=== PATIENT | male | born 1990 | race Caucasian/White ===

== ENCOUNTER → 2020-11-15 10:48 | Outpatient (CLI) | payer MEDICAID, SELFPAY ==
[2020-11-15 12:21] LABS: Absolute Lymphocyte Count 2.32 X10^3/uL (0.83-4.51); Absolute Neutrophil Count 5.6 X10^3/uL (2.0-7.7); Basophil# 0.12 X10^3/uL; Basophil% 1.3 % (0-1); Eosinophil# 0.53 X10^3/uL; Eosinophils% 5.7 % (0-5); Hematocrit 46.1 % (40-54); Hemoglobin 15.3 g/dL (13.0-16.5); Lymphocyte # 2.32 X10^3/ul (0.83-4.51); Lymphocyte % 25.1 % (19-41); Mean Corp Hgb Conc 33.2 g/dL (32-36); Mean Corpuscular Hgb 30.1 pg (27.0-32.0); Mean Corpuscular Volume 90.7 fL (80-94); Monocyte% 7.6 % (0-10); NRBC Flagged by Analyzer 0 % (0-5); Neutrophil # 5.56 X10^3/uL (2.7-7.7); Platelet Count 381 K/mm3 (150-450); RBC Distribution Width CV 12.8 % (11.6-14.6); Red Blood Count 5.08 M/mm3 (4.6-6.2); White Blood Count 9.3 K/mm3 (4.4-11.0)
[2020-11-15 12:59] LABS: ALB/GLOB Ratio 1.1 RATIO (0.9-2.4); AST(SGOT) 15 U/L (15-37); Alanine Aminotransfer ALT/SGPT 24 U/L (16-61); Albumin, Serum 3.8 g/dL (3.2-5.0); Alkaline Phosphatase 72 U/L (45-117); Anion Gap 11 (5-15); BUN 15 mg/dL (7-18); BUN/Creat Ratio 16.8 RATIO (10-20); Calcium,Total 8.4 mg/dL (8.5-10.1); Chloride 103 mmol/L (98-107); Cholesterol 181 mg/dL (200); Creatinine, Serum 0.89 mg/dL (0.70-1.30); EST Glomerular Filtration Rate 106 mL/min (>60); Est Glom Filt Rate - Afr Amer 128 mL/min (>60); Globulin 3.5 g/dL (2.2-4.2); Glucose 154 mg/dL (74-106); High Density Lipoprotein 58 mg/dL; Potassium 3.6 mmol/L (3.5-5.1); Protein, Total 7.3 g/dL (6.4-8.2); Sodium Level 138 mmol/L (136-145); Thyroid Stim Hormone (TSH) 1.35 uIU/mL (0.358-3.74); Triglycerides 75 mg/dL; Very Low Density Lipoprotein 15 mg/dL (5-40)
== END ==
PROVIDERS: PCP Family Medicine; Visit Provider Family Medicine
DX: E11.9 Type 2 diabetes mellitus without complications (principal)
CPT/HCPCS: 36415; 80053; 80061; 84403; 84443; 85025

== ENCOUNTER → 2022-02-24 | Outpatient (CLI) | payer MEDICAID, SELFPAY ==
[2022-02-24 18:21] LABS: Vitamin B12 1076 pg/mL (211-911)
[2022-02-24 18:41] LABS: AST(SGOT) 13 U/L (15-37); Alanine Aminotransfer ALT/SGPT 25 U/L (16-61); Albumin, Serum 3.7 g/dL (3.2-5.0); Alkaline Phosphatase 61 U/L (45-117); Anion Gap 7 (5-15); BUN 17 mg/dL (7-18); BUN/Creat Ratio 19.8 RATIO (10-20); Calcium,Total 9.4 mg/dL (8.5-10.1); Chloride 106 mmol/L (98-107); Cholesterol 127 mg/dL (200); Creatinine, Serum 0.86 mg/dL (0.70-1.30); EST Glomerular Filtration Rate 110 mL/min (>60); Est Glom Filt Rate - Afr Amer 133 mL/min (>60); Globulin 3.6 g/dL (2.2-4.2); Glucose 125 mg/dL (74-106); High Density Lipoprotein 44 mg/dL; Potassium 3.9 mmol/L (3.5-5.1); Protein, Total 7.3 g/dL (6.4-8.2); Sodium Level 138 mmol/L (136-145); Thyroid Stim Hormone (TSH) 1.05 uIU/mL (0.358-3.74); Triglycerides 107 mg/dL; Very Low Density Lipoprotein 21 mg/dL (5-40)
== END | disposition home or self-care (01) ==
LOC: MFPLAB 15:40
PROVIDERS: PCP Family Medicine; Referring Provider Family Medicine; Visit Provider Family Medicine
DX: E10.65 Type 1 diabetes mellitus with hyperglycemia (principal)
CPT/HCPCS: 36415; 80053; 80061; 82607; 84403; 84443

== ENCOUNTER 2023-11-04 01:54 | Emergency (ER) | payer BC, MEDICAID, SELFPAY ==
[2023-11-04] VITALS (9 sets, daily range): BP systolic 124–154; BP diastolic 69–91; PULSE 72–97; RESP 15–23; TEMP 35.7–36.6; O2SAT 91–100; BMI 24.1
--- NOTE | 2023-11-04 02:37 | CT_ITS ---
ACR Level 3 findings have been noted. An addendum which confirms receipt of the report will follow. EXAM: CT HEAD WITHOUT INTRAVENOUS CONTRAST CLINICAL INDICATION: seizure TECHNIQUE: Multiple axial images were obtained of the head without intravenous contrast. CTDIvol = ( 44.99 ) mGy, DLP = ( 846.73 ) mGycm This CT exam was performed using one or more of the following dose reduction techniques: automated exposure control, adjustment of the mA and/or kV according to patient size, and/or use of iterative reconstruction technique. COMPARISON: No relevant prior studies available. FINDINGS: BRAIN AND EXTRA-AXIAL SPACES: Subtle hypodensity involving the superior left frontal lobe. No intra- or extra-axial hemorrhage. No intracranial mass or mass effect. There is preservation of the lovelace/white matter interface. Posterior fossa structures are unremarkable. Ventricles are appropriate for age. No hydrocephalus. Basal cisterns are patent. BONES/JOINTS: Unremarkable. No discrete lytic or blastic abnormalities. SINUSES: Unremarkable as visualized. Clear. MASTOID AIR CELLS: Unremarkable. Clear. ORBITS: Visualized globes, extraocular muscles, optic nerves and retrobulbar fat appear unremarkable. CT/Brain/Head without Contrast IMPRESSION: Subtle hypodensity involving the superior left frontal lobe. Appearance is nonspecific but if there is clinical concern for acute infarct as a potential cause, recommend MRI for further investigation. Electronically Signed: Jeyson Desai MD at 4:57 EDT ,
--- NOTE | 2023-11-04 02:37 | RAD_ITS ---
EXAM: XR RIGHT SHOULDER COMPLETE, 2 OR MORE VIEWS CLINICAL INDICATION: pain TECHNIQUE: Two or more views of the right shoulder. COMPARISON: No relevant prior studies available. FINDINGS: Acute comminuted fracture involving the humeral head with anterior dislocation humeral head relative to glenoid. Cannot exclude a fracture of the glenoid. Recommend CT for further investigation. RAD/Shoulder min 2 Views IMPRESSION: Acute comminuted fracture involving the humeral head with anterior dislocation humeral head relative to glenoid. Cannot exclude a fracture of the glenoid. Recommend CT for further investigation. Electronically Signed: Jeyson Desai MD at 4:54 EDT ,
[2023-11-04] MEDS: 0.9% Normal Saline (1000mL) 1,000 ML 999 ML IV ×2 (03:07→08:37)
[2023-11-04 03:16] LABS: Absolute Neutrophil Count 19.8 X10^3/uL (2.0-7.7); Basophil# 0.12 X10^3/uL; Basophil% 0.5 % (0-1); Eosinophil# 0.06 X10^3/uL; Eosinophils% 0.3 % (0-5); Hematocrit 49.6 % (40-54); Hemoglobin 16.4 g/dL (13.0-16.5); Lymphocyte % 5.3 % (19-41); Mean Corp Hgb Conc 33.1 g/dL (32-36); Mean Corpuscular Hgb 31.2 pg (27.0-32.0); Mean Corpuscular Volume 94.3 fL (80-94); Mean Platelet Vol. 9.3 fl (6.2-12.0); Monocyte% 5.8 % (0-10); NRBC Flagged by Analyzer 0 % (0-5); Neutrophil # 19.77 X10^3/uL (2.7-7.7); Neutrophil % 87.5 % (47-70); Platelet Count 292 K/mm3 (150-450); RBC Distribution Width CV 12.1 % (11.6-14.6); RBC Distribution Width SD 42.4 fl (35.1-43.9); Red Blood Count 5.26 M/mm3 (4.6-6.2); White Blood Count 22.6 K/mm3 (4.4-11.0)
[2023-11-04] MEDS: Orphenadrine 60 MG/2 ML Ampul IV (03:31)
[2023-11-04] MEDS: Ketorolac 30 MG/ML Syringe IV (03:31)
[2023-11-04 03:36] LABS: Lactic Acid 2.1 mmol/L (0.4-1.9)
[2023-11-04 04:50] LABS: Anion Gap 10 (5-15); BUN 12 mg/dL (7-18); Chloride 105 mmol/L (98-107); Sodium Level 140 mmol/L (136-145)
--- NOTE | 2023-11-04 05:03 | CT_ITS ---
EXAM: CT Shoulder W/O Contrast Injection RIGHT HISTORY: shoulder dislocation with fracture TECHNIQUE: Axial images obtained through the shoulder without IV contrast. Sagittal and coronal reformats were provided. IV Contrast: None.. RADIATION DOSAGE (If Supplied By Facility): CTDIvol = ( 25.88 ) mGy, DLP = ( 564.25 ) mGycm Individualized dose optimization techniques were used for this CT. COMPARISON: Right shoulder x-rays earlier same day. LIMITATIONS: None. FINDINGS: Comminuted fracture proximal humerus involving the greater tuberosity, with approximately 3.5 cm displacement of the larger fragment posterolateral in relation to the humeral head. The humeral head is displaced anterior and inferior relation to the glenoid. The posterior margin of the humeral head is in direct contact with the scapula anterolateral and medial to the glenoid. There is an impaction fracture at the anterior margin of the glenoid. There are numerous tiny bone fragments within the joint space. Moderate joint effusion. Surrounding soft tissue edema. CT/Extremity Upper without Contra IMPRESSION: Fracture dislocation at the glenohumeral joint with comminuted fracture of the greater tuberosity, and humeral head impacted on the scapula anterior to the glenoid. Impaction fracture of the glenoid. Electronically Signed: Denia Craft MD at 6:55 EDT ,
[2023-11-04] MEDS: Ondansetron 4 MG/2 ML Vial IV (05:10)
[2023-11-04] MEDS: HYDROmorphone 1 MG/ML Syringe IV (05:11)
[2023-11-04 05:31] LABS: Bedside Glucose 106 mg/dL (74-106)
[2023-11-04 07:12] LABS: Reflex Lactate? Y
--- NOTE | 2023-11-04 07:34 | EDS_ITS ---
HPI History of Present Illness Chief Complaint: Upper Extremity Injury Informant: patient and friend Narrative Narrative: Patient is a 33-year-old male with past medical history of type 1 diabetes. He states he went to bed last night as he normally would and then he awoke from sleep and felt pain in his right shoulder. He states that prior to falling asleep there is no excessive activity or trauma. He denies falling out of his bed while sleeping. He states he just awoke and noted the pain and has had difficulty moving the arm since he awoke and secondary to this comes in for evaluation. [facility] Medical History (Updated 11/04/23 @ 09:[address] Jeyson Guillaume, DO) Wears glasses Diabetes mellitus type 1 Home Medications ?Medication ?Instructions ?Recorded ?Last Taken ?Type atorvastatin 20 mg tablet 20 mg PO DAILY 11/04/23 Unknown History insulin aspart U-100 100 unit/mL 40 unit subcut 11/04/23 Unknown History (3 mL) subcutaneous pen (Novolog FlexPen U-100 Insulin aspart) insulin glargine 100 unit/mL 50 unit subcut QPM 11/04/23 Unknown History subcutaneous solution (Lantus U-100 Insulin) lisinopril 2.5 mg tablet 2.5 mg PO DAILY 11/04/23 Unknown History oxycodone-acetaminophen 5 mg-325 1 tab PO Q6H PRN pain 5 days #20 11/04/23 Unknown Rx mg tablet (Percocet) tabs Allergy/AdvReac Type Severity Reaction Status Date / Time No Known Allergies Allergy Verified 11/04/23 01:55 Surgical History (Updated 11/04/23 @ 01:57 by Georgina Payan) Hx of tonsillectomy Social History Smoking Status: Current every day smoker tobacco type: e-cigarettes ROS ROS ED Constitutional Constitutional ED: Denies chills or fever(s) Eyes Eyes: Denies change in vision ENT ENT ED: Denies sore throat Cardiovascular Cardiovascular: Denies chest pain Respiratory/Chest Respiratory/Chest: Denies cough or dyspnea Gastrointestinal Gastrointestinal: Denies abdominal pain, diarrhea, nausea or vomiting Genitourinary Genitourinary ED: Denies dysuria Musculoskeletal Musculoskeletal: Reports other Details: Positive right shoulder pain Integumentary Denies rash Neurologic Neurologic: Denies headache(s) or paresthesias Hematologic/Lymphatic Hematologic/Lymphatic: Denies easy bleeding or easy bruising EXAM Physical Exam Const Vital Signs: 11/04/23 01:55 11/04/23 03:19 11/04/23 05:19 Temperature 96.3 F L Temperature Source Temporal Pulse Rate 97 91 92 Respiratory Rate 16 16 16 Blood Pressure 148/91 H 154/83 H 147/80 H Blood Pressure Mean 110 106 102 Pulse Ox 99 100 99 Oxygen Delivery Method Room Air Room Air Room Air Positive well nourished and well developed General Appearance ED: well developed HEENT HEENT Narrative: Normocephalic atraumatic There is tongue biting noted on the right lateral side concerning for seizure disorder Eyes PERRL and EOMs intact bilaterally Eyes Narrative: No hyphema noted Neck full ROM and supple Neck Narrative: No bony deformity or step-off of the cervical spine no midline tenderness to palpation Chest Wall palpation of chest normal Chest Narrative: No bony deformity or crepitance noted Resp normal respiratory effort and clear to auscultation bilaterally Cardio regular rate and regular rhythm GI non-tender, non-distended and no masses Auscultation: normoactive bowel sounds Palpation: soft Back/Spine Back/Spine Narrative: No bony deformity or step-off of the thoracic or lumbar spine no midline tenderness to palpation Extremity Extremity Narrative: Right upper extremity is neurovascularly intact. There is soft tissue swelling with potential sulcus sign of the right shoulder. There is diffuse pain on palpation of the right shoulder and right upper arm. No obvious joint effusion. Compartments are soft and compressible going against compartment syndrome. Remainder of the exam is normal Neuro oriented x3 and CN's II-XII intact bilaterally Sensorium / Orientation: alert Psych mental status grossly normal Skin no rashes or lesions noted MDM MDM MDM Narrative Medical decision making narrative: Patient arrived to the ER hypertensive but otherwise with stable vitals. He reported waking up and having right shoulder pain and difficulty moving it. On exam there is soft tissue swelling with potential sulcus sign indicating potential shoulder dislocation. There is also right-sided tongue biting noted which would be consistent with a seizure. The patient does not have a history of seizure disorder and has this would be the most likely reason for potential shoulder dislocation without history of trauma or excessive activity I did elect to perform a basic workup that included head CT. The patient's right shoulder x-ray confirmed a fracture dislocation. Radiology recommended a CT scan therefore this was performed and correlates with his x-ray. The patient's blood work showed leukocytosis at 22 and this could be consistent with a stress response from seizure activity and his lactic acid was also slightly elevated consistent with seizure activity. Otherwise he has no signs of DKA or HHS nor other signs of acute kidney injury or electrolyte derangement. The patient CT scan did question a potential area of infarct. I discussed with the patient the need to perform a MRI of his brain to further assess what this potential area may be. He was informed that it could just be artifact and this would also correlate with his normal neurologic exam and stroke scale score of 0. The patient states has been in the ER for too long and he does not want to wait in the ER for another multiple hours to have his MRI obtained. I discussed the case with orthopedic surgeon regarding the fracture dislocation and they feel there is no need for emergent surgical intervention based on the CT scan and the fact he is neurovascularly intact. Therefore the shoulder was reduced as documented below and patient will be discharged home with strict precautions not to drive or operate heavy machinery secondary to his new onset seizure activity. He will follow-up with orthopedics to discuss need for surgical intervention of his fracture and he also agrees to follow-up with his family doctor to get an outpatient MRI regarding the abnormality noted on his head CT today. Patient underwent conscious sedation with closed reduction of his right shoulder fracture dislocation. Patient was given a total of 120 milligrams of propofol and 5 mg of Versed for conscious sedation. Then traction countertraction was employed and there was spontaneous relocation of his shoulder joint. Confirmation was by x-ray. Patient was placed in a sling and swath following confirmation of the reduction. Patient tolerated procedure well without complication. Approximate conscious sedation time of 15 minutes History & Record Review Discussion w/independent historian: Patient and Friend Lab Data Attestation: I reviewed the patient's lab results. Labs: Laboratory Results - last 24 hr 11/04/23 11/04/23 03:07 05:10 WBC 22.6 H RBC 5.26 Hgb 16.4 Hct 49.6 MCV 94.3 H MCH 31.2 MCHC 33.1 RDW Std Deviation 42.4 RDW Coeff of [place] 12.1 Plt Count 292 MPV 9.3 Immature Gran % (Auto) 0.600 Neut % (Auto) 87.5 H Lymph % (Auto) 5.3 L [place] % (Auto) 5.8 Eos % (Auto) 0.3 Baso % (Auto) 0.5 Absolute Neuts (auto) 19.8 H Absolute Lymphs (auto) 1.20 Nucleated RBC % 0 Sodium 140 Potassium 3.6 Chloride 105 Carbon Dioxide 25.0 Anion Gap 10 BUN 12 Creatinine 1.03 Estim Creat Clear Calc 111.96 Est GFR (MDRD) Af Amer 107 Est GFR (MDRD) Non-Af 88 BUN/Creatinine Ratio 11.7 Glucose 61 L Lactic Acid 2.1 H* Calcium 10.0 POC Glucose 106 Radiography Diagnostic Testing: Clinical Impression(s) from Imaging Studies Brain CT 11/04/23 02:37 IMPRESSION: Subtle hypodensity involving the superior left frontal lobe. Appearance is nonspecific but if there is clinical concern for acute infarct as a potential cause, recommend MRI for further investigation. Electronically Signed: Jeyson Desai MD at 4:57 EDT Reading Location ID and State: [facility] / [place] Tel , Service support , ADDENDUM: 11/04/23 0531 IMPRESSION: Subtle hypodensity involving the superior left frontal lobe. Appearance is nonspecific but if there is clinical concern for acute infarct as a potential cause, recommend MRI for further investigation. N.B. : Jeyson Guillaume DO, confirmed on 11/04/2023 05:24:45 (ET) that the healthcare facility has received the radiology report. Electronically Signed: Jeyson Desai MD at 4:57 EDT Reading Location ID and State: [facility] / [place] Tel , Service support , Shoulder X-Ray 11/04/23 02:37 IMPRESSION: Acute comminuted fracture involving the humeral head with anterior dislocation humeral head relative to glenoid. Cannot exclude a fracture of the glenoid. Recommend CT for further investigation. Electronically Signed: Jeyson Desai MD at 4:54 EDT Reading Location ID and State: [facility] / [place] Tel , Service support , Upper Extremity CT 11/04/23 05:03 IMPRESSION: Fracture dislocation at the glenohumeral joint with comminuted fracture of the greater tuberosity, and humeral head impacted on the scapula anterior to the glenoid. Impaction fracture of the glenoid. Electronically Signed: Denia Craft MD at 6:55 EDT Reading Location ID and State: [address] [place] [address] Tel , Service support , Right shoulder x-ray as interpreted by the emergency medicine physician reveals a comminuted fracture of the humeral head with anterior dislocation Right shoulder x-ray status post reduction of the right shoulder as interpreted by emergency medicine physician reveals adequate relocation/reduction of the right shoulder into the joint space with persistent greater tuberosity fracture Procedures Procedural Sedation 1 (Initial Baseline): Consent Signed: Yes Any Problems With Anesthesia: No You/Your family experience fever (hyperthermia) w/anesthesia: No Sedation medication: Versed Dose: 120 Route: IV Maliampati Score: Class I ASA Classification: II Discharge Plan Triage Chief Complaint: Upper Extremity Injury ED Provider: Jeyson Guillaume Dx/Rx/DC Orders Clinical Impression: Fracture dislocation of right shoulder joint, New onset seizure, Type 1 diabetes mellitus Instructions: ED Dislocation: Shoulder (Reduced), ED Fracture, Shoulder, ED Seizure New [facility] Adult Prescriptions: New oxycodone-acetaminophen [Percocet] 5-325 mg tablet 1 tab PO Q6H PRN (Reason: pain) 5 Days Qty: 20 0RF No Action insulin glargine [Lantus U-100 Insulin] 100 unit/mL solution 50 unit subcut QPM atorvastatin 20 mg tablet 20 mg PO DAILY lisinopril 2.5 mg tablet 2.5 mg PO DAILY insulin aspart U-100 [Novolog FlexPen U-100 Insulin] 100 unit/mL (3 mL) insulin pen 40 unit subcut Primary Care Provider: Domenic Zarate Referrals: Domenic Zarate MD [Primary Care Provider] - Atilio Winston DO [Med Staff - Active Staff] - Sarbjit Manning MD [Non-Staff -Ordering Privileges] - Activity Restrictions/Additional Instructions: Please follow-up with orthopedics for repeat evaluation and to discuss need for surgical fixation of your right shoulder fracture. Also as your history and exam indicate you had a seizure this evening/morning as a cause of your symptoms you should not drive or operate heavy machinery until you are cleared by neurology. We discussed there was a potential abnormal finding on your CT scan of your brain and therefore talk to your family doctor about potential outpatient MRI to further evaluate this. Return to the ER should you have any further concerns Print Language: Yakut Disposition Disposition: Home, Self Care Discharge Date/Time: 11/04/23 09:54
[2023-11-04] MEDS: Propofol 200 MG/20 ML Vial IV BOLUS (08:37)
[2023-11-04] MEDS: Midazolam 5 MG/ML Syringe IV (08:39)
--- NOTE | 2023-11-04 09:01 | ED.RN ---
post reduction xrays at bedside.
--- NOTE | 2023-11-04 09:05 | RAD_ITS ---
STUDY: X-RAY - RIGHT SHOULDER REASON FOR EXAM: Male, 33 years old. S/p reduction TECHNIQUE: 2 view(s) of the shoulder. COMPARISON: Comparison is made with prior study done earlier today. FINDINGS: Satisfactory reduction of the glenohumeral joint. There is a fracture through the greater tuberosity of the proximal humerus. Normal acromioclavicular joint. Normal acromion. The soft tissue structures are unremarkable. Normal visualized pulmonary apex. RAD/Shoulder min 2 Views IMPRESSION: Satisfactory reduction. Once again, is evidence of a fracture through the greater tuberosity of the proximal humerus. Electronically Signed: Raul Brink MD at 9:30 EDT ,
[2023-11-04] MEDS: oxyCODONE 5 MG Tablet 10 MG PO (09:48)
[2023-11-04 12:10] LABS: BUN/Creat Ratio 12.2 RATIO (10-20); Calcium,Total 9.8 mg/dL (8.5-10.1); Creatinine, Serum 0.99 mg/dL (0.70-1.30); EST Glomerular Filtration Rate 93 mL/min (>60); Est Glom Filt Rate - Afr Amer 112 mL/min (>60); Estimated Creatinine Clearance 116.49 ml/min; Glucose 66 mg/dL (74-106); LDH 272 U/L (87-241); Potassium 3.6 mmol/L (3.5-5.1)
== END 2023-11-04 09:54 | disposition home or self-care (01) ==
PROVIDERS: Emergency Provider Emergency Medicine; PCP Family Medicine; Visit Provider Emergency Medicine
DX: S42.91XA Fracture of right shoulder girdle, part unspecified, initial encounter for closed fracture (principal); R56.9 Unspecified convulsions; E10.9 Type 1 diabetes mellitus without complications; Z79.4 Long term (current) use of insulin; F17.290 Nicotine dependence, other tobacco product, uncomplicated; Z79.899 Other long term (current) drug therapy; X58.XXXA Exposure to other specified factors, initial encounter
CPT/HCPCS: 70450; 73030; 73200; 80048; 82962; 83605; 83615; 84146; 85025; 96361; 96374; 96375; 99283; J2405

== ENCOUNTER 2023-11-06 21:40 | Emergency (ER) | payer BC, MEDICAID, SELFPAY ==
[2023-11-06 21:41] VITALS: BP 139/89; PULSE 79; RESP 18; TEMP 36.3; O2SAT 97; BMI 23.9
--- NOTE | 2023-11-06 22:20 | RAD_ITS ---
EXAM: XR RIGHT HUMERUS, 2 OR MORE VIEWS CLINICAL INDICATION: pain TECHNIQUE: Frontal and lateral views of the right humerus. COMPARISON: No relevant prior studies available. FINDINGS: BONES/JOINTS: There is a fracture the greater tuberosity of the proximal humerus. Preservation of the joint space. No sclerotic or destructive changes observed. SOFT TISSUES: Unremarkable. No soft tissue swelling or gas. No radiopaque foreign body. RAD/Humerus min 2 Views IMPRESSION: Fracture of the greater tuberosity. Electronically Signed: Livan Wolfe MD at 22:47 EDT ,
--- NOTE | 2023-11-06 22:20 | RAD_ITS ---
EXAM: XR RIGHT SHOULDER COMPLETE, 2 OR MORE VIEWS CLINICAL INDICATION: pain TECHNIQUE: Two or more views of the right shoulder. COMPARISON: No relevant prior studies available. FINDINGS: BONES/JOINTS: There is a fracture of the greater tuberosity. Humeral head is located in the glenoid fossa. Preservation of the joint space. No sclerotic or destructive changes observed. SOFT TISSUES: Unremarkable. No soft tissue swelling or gas. No radiopaque foreign body. RAD/Shoulder min 2 Views IMPRESSION: Fracture of the greater tuberosity. Electronically Signed: Livan Wolfe MD at 23:11 EDT ,
[2023-11-06] MEDS: Gabapentin 300 MG Capsule PO (22:32)
--- NOTE | 2023-11-06 23:14 | EX.ED.UPPERE ---
HPI History of Present Illness Chief Complaint: Upper Extremity Injury Informant: patient and friend Narrative Narrative: Patient is a 33-year-old male with history of type 1 diabetes. He was seen a few days ago secondary to shoulder pain with no trauma and was found to have new onset seizure activity with a fracture dislocation of the right humerus. Patient had the dislocation reduced was placed in a sling and discharged home. He states that he has had no repeat trauma or seizure activity but has noticed increased pain to the right shoulder and secondary to his comes in for evaluation. [facility] Medical History (Updated 11/06/23 @ 23:[address] Jeyson Guillaume, DO) Wears glasses Diabetes mellitus type 1 Home Medications ?Medication ?Instructions ?Recorded ?Last Taken ?Type atorvastatin 20 mg tablet 20 mg PO DAILY 11/04/23 Unknown History insulin aspart U-100 100 unit/mL 40 unit subcut TIDCM 11/04/23 Unknown History (3 mL) subcutaneous pen (Novolog FlexPen U-100 Insulin aspart) insulin glargine 100 unit/mL 50 unit subcut QPM 11/04/23 Unknown History subcutaneous solution (Lantus U-100 Insulin) lisinopril 2.5 mg tablet 2.5 mg PO DAILY 11/04/23 Unknown History oxycodone-acetaminophen 5 mg-325 1 tab PO Q6H PRN pain 5 days #20 11/04/23 Unknown Rx mg tablet (Percocet) tabs Allergy/AdvReac Type Severity Reaction Status Date / Time No Known Allergies Allergy Verified 11/06/23 21:41 Surgical History (Updated 11/04/23 @ 01:57 by Georgina Payan) Hx of tonsillectomy Social History Smoking Status: Current every day smoker tobacco type: e-cigarettes ROS ROS ED Constitutional Constitutional ED: Denies chills or fever(s) ENT ENT ED: Denies sore throat Cardiovascular Cardiovascular: Denies chest pain Respiratory/Chest Respiratory/Chest: Denies cough or dyspnea Gastrointestinal Gastrointestinal: Denies abdominal pain, diarrhea, nausea or vomiting Genitourinary Genitourinary ED: Denies dysuria Musculoskeletal Musculoskeletal: Reports other Details: Positive right shoulder pain and swelling Integumentary Denies rash Neurologic Neurologic: Reports paresthesias; Denies headache(s) Hematologic/Lymphatic Hematologic/Lymphatic: Denies easy bleeding or easy bruising EXAM Physical Exam Const Vital Signs: 11/06/23 21:41 Temperature 97.3 F L Temperature Source Temporal Pulse Rate 79 Respiratory Rate 18 Blood Pressure 139/89 H Blood Pressure Mean 105 Pulse Ox 97 Oxygen Delivery Method Room Air Positive well nourished and well developed General Appearance ED: well developed HEENT HEENT Narrative: Normocephalic atraumatic Eyes PERRL and EOMs intact bilaterally Neck supple Resp normal respiratory effort and clear to auscultation bilaterally Cardio regular rate and regular rhythm Extremity Extremity Narrative: Right upper extremity is neurovascularly intact; AIN/PIN are intact and normal Active and passive range of motion is severely limited secondary to the previous shoulder fracture There is soft tissue swelling with hematoma formation present however compartments are still soft and compressible going against compartment syndrome. No overlying erythema to suggest infection or abscess formation. Neuro oriented x3 and CN's II-XII intact bilaterally Sensorium / Orientation: alert Psych mental status grossly normal Skin no rashes or lesions noted Skin Narrative: Soft tissue swelling with ecchymosis to the right shoulder and upper humerus as documented above MDM MDM MDM Narrative Medical decision making narrative: Patient arrived to the ER with stable vitals. He denied any new trauma or recurrent seizure activity but does report a persistent pain in the right shoulder. Differential diagnosis is persistent shoulder pain from the trauma/fracture versus hematoma versus compartment syndrome versus infection. There are no physical exam findings to suggest infection and his compartments are soft and compressible going against compartment syndrome. In order to ensure the patient has not developed a secondary fracture or recurrent dislocation and x-rays were obtained. These revealed no acute findings other than the previous/recent greater tuberosity fracture. Therefore this time as the x-rays confirm no new finding and the patient does not have findings of infection or compartment syndrome is otherwise safe for discharge Radiography Diagnostic Testing: Clinical Impression(s) from Imaging Studies Humerus X-Ray 11/06/23 22:20 IMPRESSION: Fracture of the greater tuberosity. Electronically Signed: Livan Wolfe MD at 22:47 EDT , Shoulder X-Ray 11/06/23 22:20 IMPRESSION: Fracture of the greater tuberosity. Electronically Signed: Livan Wolfe MD at 23:11 EDT , X-ray of the right shoulder and right humerus as interpreted by the emergency medicine physician reveals persistent fracture of the greater tuberosity without dislocation Discharge Plan Triage Chief Complaint: Upper Extremity Injury ED Provider: Jeyson Guillaume Dx/Rx/DC Orders Clinical Impression: Fracture of proximal end of humerus with routine healing, Hematoma of right shoulder, Type 1 diabetes mellitus Instructions: ED Fracture, Shoulder Prescriptions: No Action insulin glargine [Lantus U-100 Insulin] 100 unit/mL solution 50 unit subcut QPM atorvastatin 20 mg tablet 20 mg PO DAILY lisinopril 2.5 mg tablet 2.5 mg PO DAILY insulin aspart U-100 [Novolog FlexPen U-100 Insulin] 100 unit/mL (3 mL) insulin pen 40 unit subcut TIDCM oxycodone-acetaminophen [Percocet] 5-325 mg tablet 1 tab PO Q6H PRN (Reason: pain) 5 Days Qty: 20 0RF Primary Care Provider: Domenic Zarate Referrals: Domenic Zarate MD [Primary Care Provider] - Atilio Winston DO [Med Staff - Active Staff] - Activity Restrictions/Additional Instructions: Please continue to wear your splint for stabilization of your shoulder fracture. Sleep in a more of an upright position secondary to the fracture and follow-up with orthopedics to discuss need for potential surgery. Return to the ER should you have any further concerns Print Language: [place] Disposition Disposition: Home, Self Care
== END 2023-11-06 23:21 | disposition home or self-care (01) ==
PROVIDERS: Emergency Provider Emergency Medicine; PCP Family Medicine; Visit Provider Emergency Medicine
DX: S42.201A Unspecified fracture of upper end of right humerus, initial encounter for closed fracture (principal); E10.9 Type 1 diabetes mellitus without complications; Z79.4 Long term (current) use of insulin; F17.290 Nicotine dependence, other tobacco product, uncomplicated; S40.011A Contusion of right shoulder, initial encounter; X58.XXXA Exposure to other specified factors, initial encounter
CPT/HCPCS: 73030; 73060; 99282

== ENCOUNTER 2024-12-02 01:17 | Emergency (ER) | payer OTHER, SELFPAY ==
[2024-12-02 01:18] VITALS: BP 165/87; PULSE 94; RESP 14; TEMP 36.9; O2SAT 98; BMI 27.3
--- NOTE | 2024-12-02 01:58 | PCA ---
no old ekg
[2024-12-02 02:05] LABS: Red Blood Cells-Urine 0 SEEN /hpf (0-5); Squamous Epithelial Cells - UA 0 SEEN /hpf (0-5)
[2024-12-02 02:08] LABS: Color, Urine Yellow (Yellow); Glucose, Dipstick 1000 mg/dl (Normal); Ketone-Dipstick 5 mg/dl (Negative); Leukocyte Esterase-Dipstick Negative /ul (Negative); Nitrite-Dipstick Negative (Negative); Occult Blood-Urine Negative /ul (Negative); Protein-Dipstick 15 mg/dl (Negative); Specific Gravity, Urine 1.010 (1.002-1.030); Urine Bilirubin Dipstick Negative (Negative)
--- NOTE | 2024-12-02 02:08 | EX.ED.DYSGE1 ---
HPI History of Present Illness Chief Complaint: Weakness Narrative Narrative: Chief complaint and HPI: Lightheadedness. 34-year-old male with past medical history of DM1, migraines, HLD, HTN presents for evaluation of lightheadedness. Patient states he was at work this evening which is in a hot building. He states that he was bending over working on a car for a while. States when he stood back up he felt lightheaded. States he sat down and the lightheadedness resolved however he got 2 more episodes while sitting which is why presents to the emergency department. [place] warm during the episode. Currently asymptomatic. Patient states for the past week he has been having episodic episodes of clear fluid coming out of his nose when he bends over or turns his head. He does not know if it is mucus. He denies any history of allergies. He denies any URI symptoms. Currently has no rhinorrhea at this time. He denies any fever, chills, headache, shortness of breath, chest pain abdominal pain, nausea, vomiting. States he has been eating and drinking well. Denies any trauma to the head or face. Review of systems: See HPI Medications: As listed on the chart Allergies: As listed on the chart PFSH: Per chart Vital signs: As listed on the chart. Reviewed. Physical exam: Gen: A&O x3, NAD Head: Normocephalic, atraumatic Eyes: No sclera icterus, conjunctiva clear, PERRL, EOMI ENT: TMs clear BL, moist mucous membranes, posterior oropharynx unremarkable, uvula midline, bilateral nares clear without rhinorrhea-I did have the patient move his head in all directions as well as bend over-no rhinorrhea or clear fluid was expressed from the nares, face atraumatic, no facial tenderness Neck: Trachea midline, No JVD, Full ROM, No meningismus, no lymphadenopathy CV: RRR, no murmurs Resp: Lungs CTA BL, no w/r/c GI: Abd soft, non-distended, non-tender, no r/r/g Musc: Full ROM, no deformity Skin: Warm, dry, no rash Neuro: Alert, oriented, grossly intact, sensation intact Psych: Cooperative, appropriate mood and affect [facility] Medical History Wears glasses Diabetes mellitus type 1 History of renal disease Wears glasses Broken teeth Depression Marijuana use Alcohol use Insulin dependent diabetes mellitus High cholesterol Back pain Migraine headache Syncope Seizures Dietary restriction Heartburn Asthma Shortness of breath on exertion Vapes nicotine containing substance Leg cramps Home Medications ?Medication ?Instructions ?Recorded ?Last Taken ?Type atorvastatin 20 mg tablet 20 mg PO DAILY 11/04/23 Unknown History insulin aspart U-100 100 unit/mL 40 unit subcut TIDCM 11/04/23 Unknown History (3 mL) subcutaneous pen (Novolog FlexPen U-100 Insulin aspart) insulin glargine 100 unit/mL 50 unit subcut QPM 11/04/23 Unknown History subcutaneous solution (Lantus U-100 Insulin) lisinopril 2.5 mg tablet 2.5 mg PO DAILY 11/04/23 Unknown History oxycodone-acetaminophen 5 mg-325 1 tab PO Q6H PRN pain 5 days #20 11/04/23 Unknown Rx mg tablet (Percocet) tabs atorvastatin 20 mg tablet 20 mg PO DAILY 11/12/23 Unknown History insulin aspart U-100 100 unit/mL 1 sliding scale dose subcut TID 11/12/23 Unknown History (3 mL) subcutaneous pen (Novolog FlexPen U-100 Insulin aspart) insulin glargine 100 unit/mL (3 50 unit subcut QHS 11/12/23 11/14/23 History mL) subcutaneous pen (Lantus Solostar U-100 Insulin) lisinopril 2.5 mg tablet 2.5 mg PO DAILY 11/12/23 Unknown History multivitamin 2 tab PO DAILY 11/12/23 Unknown History tramadol 50 mg tablet 50 mg PO Q6H PRN PRN pain 11/12/23 Unknown History oxycodone 5 mg tablet 5 mg PO Q6H PRN pain 7 days #28 11/15/23 Unknown Rx tabs Allergy/AdvReac Type Severity Reaction Status Date / Time No Known Allergies Allergy Verified 12/02/24 01:18 Surgical History Hx of tonsillectomy Hx of tonsillectomy Social History (System 12/20/23 @ 10:42 by Zully King) Smoking Status: Former smoker EXAM Physical Exam Const Vital Signs: 12/02/24 01:18 12/02/24 01:18 12/02/24 03:00 Temperature 98.4 F Temperature Source Oral Pulse Rate 94 87 Respiratory Rate 14 12 Respiratory Effort Normal Respiratory Pattern Normal Blood Pressure 165/87 H 137/83 H Blood Pressure Mean 113 101 Pulse Ox 98 97 Oxygen Delivery Method Room Air MDM MDM MDM Narrative Medical decision making narrative: 34-year-old male with past medical history of DM1, migraines, HLD, HTN presents for evaluation of lightheadedness. Patient states he had a couple episodes of lightheadedness after working in a hot environment and bending over working on a car. Currently asymptomatic. Also endorses episodic clear rhinorrhea. See HPI. On presentation, patient in no acute distress. Vitals are stable other than hypertension which she has a history of. Physical exam is unremarkable. I did have the patient bend over as well as move his head in all directions, no rhinorrhea or clear drainage from the nose was able to be obtained. No clear etiology at this time. May be secondary to allergies. He denies any infectious symptoms or trauma. I do not think any further workup is needed at this time for his episodic rhinorrhea. Currently asymptomatic without any lightheadedness with movement and bending over on exam. Suspect his previous episode was secondary to vasovagal response, dehydration, heat exhaustion, electrolyte abnormality. NS bolus ordered. Will obtain CMP with UA. EKG to assess for arrhythmia. EKG reviewed see below. UA negative for UTI. Positive for mild ketones and glucose. Patient is a diabetic. CMP without electrolyte abnormality or EDUIN. Patient has mild hyperglycemia of 129. He is a known diabetic. No transaminitis. Patient has remained asymptomatic here in the emergency department. He has had no rhinorrhea. He ambulated without difficulty. Suspect his lightheadedness was secondary to vasovagal episode. Follow-up with primary care physician. Patient stable to discharge home. Return precautions explained. He confirmed understand the plan. EKG: Interpreted by me/EM physician: EKG shows normal sinus rhythm with arrhythmia. Patient has nonspecific T wave abnormalities which is seen on previous EKG in 2023. Heart rate 86. Impression: 1. Lightheadedness, suspect vasovagal episode 2. Episodic rhinorrhea Lab Data Labs: Laboratory Results - last 24 hr 12/02/24 01:58 Urine Color Yellow Urine Clarity Clear Urine pH 7.0 Ur Specific [place] 1.010 Urine Protein 15 H Urine Glucose (UA) 1000 H Urine Ketones 5 H Urine Occult Blood Negative Urine Nitrite Negative Urine Bilirubin Negative Urine Urobilinogen Normal Ur Leukocyte Esterase Negative Urine RBC 0 SEEN Urine WBC 0-5 SEEN Ur Squamous Epith Cells 0 SEEN Amorphous Sediment 1+ Urine Bacteria 1+ Urine Mucus 2+ Discharge Plan Triage Chief Complaint: Weakness ED Provider: Etienne Ramirez Dx/Rx/DC Orders Prescriptions: No Action insulin glargine [Lantus U-100 Insulin] 100 unit/mL solution 50 unit subcut QPM atorvastatin 20 mg tablet 20 mg PO DAILY lisinopril 2.5 mg tablet 2.5 mg PO DAILY insulin aspart U-100 [Novolog FlexPen U-100 Insulin] 100 unit/mL (3 mL) insulin pen 40 unit subcut TIDCM oxycodone-acetaminophen [Percocet] 5-325 mg tablet 1 tab PO Q6H PRN (Reason: pain) 5 Days Qty: 20 0RF insulin aspart U-100 [Novolog FlexPen U-100 Insulin] 100 unit/mL (3 mL) insulin pen 1 sliding scale dose subcut TID insulin glargine [Lantus Solostar U-100 Insulin] 100 unit/mL (3 mL) insulin pen 50 unit subcut QHS atorvastatin 20 mg tablet 20 mg PO DAILY lisinopril 2.5 mg tablet 2.5 mg PO DAILY tramadol 50 mg tablet 50 mg PO Q6H PRN PRN (Reason: pain) multivitamin Tablet 2 tab PO DAILY oxycodone 5 mg tablet 5 mg PO Q6H PRN (Reason: pain) 7 Days Qty: 28 0RF Primary Care Provider: Domenic Zarate Referrals: Domenic Zarate MD [Primary Care Provider] - Print Language: Croatian
--- OUTSIDE RECORDS SUMMARY | 2024-12-02 02:13 | XMS RPT_ITS | CCD ---
Author Organization [facility] Care Team Providers Care Centrifugal Drier Operator Name Role Phone Jeyson Guillaume Attending Unavailable Domenic Zarate Primary Care Unavailable Domenic Zarate Primary Care Unavailable Jeyson Guillaume Attending Unavailable Domenic Zarate Attending Unavailable Domenic Zarate Referring Unavailable Tessa, Domenic Primary Care Unavailable Atilio Winston Referring Unavailable Robert Whiting Attending Unavailable Tessa, Domenic Primary Care Unavailable Atilio Winston Attending Unavailable Atilio Winston Referring Unavailable Domenic Zarate Primary Care Unavailable Problems Problem Classification Problem Date Documented Da te Episodic/Chronic Epilepsy; convulsions (1 source) Unspecified convulsions; Translations: [Unspecified convulsions] Onset: 12-22-2023 Episodic Fracture of upper limb (2 sources) Displaced fracture of glenoid cavity of scapula, right shoulder, initial encounter for closed fracture; Translations: [Unspecified fracture of upper end of right humerus, initial encounter for closed fracture] Onset: 11-24-2023 Episodic Other non-traumatic joint disorders (1 source) Pain in right shoulder; Translations: [Pain in right shoulder] Onset: 01-25-2024 Episodic Results Test Name Value Interpretation Reference Range Facility Bedside Glucoseon 11-15-2023 FINGERSTICK GLU 218 mg/dL High 74-106 [facility] Comment on above: Result Comment: ADELITA GEMENT OF PATIENT CARE PER NURSING PROTOCOL Performed By: #### L 501.080 ####[facility] [address] [place], [place], [address] FINGERSTICK GLU 165 mg/dL High 74-106 [facility] Comment on above: Result Comment: ADELITA GEMENT OF PATIENT CARE PER NURSING PROTOCOL Performed By: #### L 501.080 ####[facility] [address] [facility] [place], [address] MR/POSTOP.ANEon 11-15-2023 MR/POSTOP.[facility] Medical Records Department [address] [address] Anesthesia Postop Eval I 11/15/23 1447 MR#: [id number] Acct: [id number] Name: VÍCTOREVIE DORENE Rep #: [id number] : 1990 33 From: Saleem Malhotra PCP: Dr. Domenic Zarate MD Status:JEAN CARLOS AGARWAL Y Race: C Location: [facility] Anesthesia: Postop Eval I Current Vital Signs Temperature: 97.1 F Pulse Rate: 102 Blood Pressure: 135/86 Respiratory Rate: 16 Pulse Ox: 99 Oxygen Delivery Method: Room Air Assessment Airway patent: Yes Spontaneous unlabored respirations: Yes Mental status: Calm and Asleep nausea: No Vomiting: No Anesthesia Complication: No Fluid Hydration Crystalloid volume administer (ml): 1,800 Total IV fluid infused: 1,800 Progress Note Anesthesia document: Postop Eval 1 completed: Yes 11/15/23 1448 Date Saleem Roque Signature: Date CC: Signed Normal [facility] MR/BRHAMFCX6oi 11-15-2023 MR/POSTOPAN2 [facility] Medical Records Department [address] [place] [address] Anesthesia Postop Eval II 11/15/23 1637 MR#: [id number] Acct: [id number] Name: EVIE RENEE Rep #: [id number] : 1990 33 From: Josh Carrera MD PCP: Dr. Domenic Zarate MD Status:JEAN CARLOS AGARWAL Y Race: C Location: [facility] [place] Anesthesia Postop Eval I Sum Postop Eval Completion status Anesthesia document: Postop Eval 1 completed: Yes Anesthesia Postop Eval I Summary Anesthesia Postop Eval I Summary: Anesthesia Postop Eval I: Assessment Summary Airway patent Yes 11/15/23 14:48 LIFE ASSURANCE REPRESENTATIVE.MDOT Spontaneous unlabored Yes 11/15/23 14:48 LIFE ASSURANCE REPRESENTATIVE.MDOT respirations Mental status Calm,Asleep 11/15/23 14:48 LIFE ASSURANCE REPRESENTATIVE.MDOT nausea No 11/15/23 14:48 LIFE ASSURANCE REPRESENTATIVE.MDOT Vomiting No 11/15/23 14:48 LIFE ASSURANCE REPRESENTATIVE.MDOT Anesthesia Postop Eval I: Fluid Summary Crystalloid volume administer 1,800 11/15/23 14:48 LIFE ASSURANCE REPRESENTATIVE.MDOT (ml) Colloids volume administered ( ml) Blood Product volume administered (ml) Total IV fluid infused 1,800 11/15/23 14:48 LIFE ASSURANCE REPRESENTATIVE.MDOT Anesthesia Postop Eval I: Summary Notes Anesthesia Complication No 11/15/23 14:48 LIFE ASSURANCE REPRESENTATIVE.MDOT Anesthesia Complication Comment: Post-operative progress note Anesthesia: Postop Eval II Evaluation Mental status: Awake and Calm Pain Level: 1 nausea: No Vomiting: No Progress Note Post-operative progress note: Patient had fast heart rate in PACU (up to 131). He had quite a bit of fluids(1800cc) intra-op, so after having patient empty his bladder, heartrate came down to 112. Still elevated compared to preop but with no pain and no other symptoms. Okay to discharge from PACU. Complications Anesthesia Complication: No 11/15/23 1641 Date Josh Carrera MD Cosigner Signature: Date CC: Signed Normal [facility] Operative Reporton 4 Operative Report [facility] Medical Records Department [address] [place] [address] Operative Report 11/15/23 1453 MR#: [id number] Acct: [id number] Name: EVIE RENEE Rep #: [id number] : 1990 33 From: Atilio Winston DO PCP: Dr. Domenic Zarate MD Status:[facility] Location: [facility] [facility] Report of Operation Date of Procedure: 11/15/23 Description of Surgical Findings:: Preoperative diagnosis: 1. Right glenohumeral fracture dislocation with displaced greater tuberosity fracture and anterior inferior glenoid fracture Postoperative diagnosis: 1. Right glenohumeral fracture dislocation with displaced greater tuberosity fracture and anterior inferior glenoid fracture 2. Right glenoid labrum tear Procedure: 1. Right shoulder arthroscopic labral repair 2. Open reduction internal fixation right proximal humerus greater tuberosity Surgeon: Atilio Winston DO assistant tennis professional: Elaina Hernandez PA-C Anesthesia: General LMA with interscalene block Anesthesiologist: Lane Beltran MD Estimated blood loss: 50 cc IV fluids: Per anesthesia record Urine output: None recorded Specimen: None Implants: Arthrex 1.8 knotless fiber tack anchor x 3, Arthrex 2.6 fiber tack anchor x 3, Arthrex 4.75 mm bio composite swivel lock anchor x 2, DBX putty 0.5 cc Complications: None apparent Intraoperative findings: Small less than 10% bony Bankart lesion, traumatic tearing of the anterior glenoid labrum from the 4:00 to 1 o'clock position. Comminuted displaced greater tuberosity fracture. Intact rotator cuff. Fracture stable following fixation. Preoperative indications: This is a 33-year-old male who is a type I diabetic who had a unwitnessed apparent seizure approximately 10 days ago. 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 He states he came home from work that evening and had laid down to take a nap which he will do from time to time. Patient reports she does enjoy staying up late and playing video games typically and this was not unusual behavior for him. He denied any prodromal symptoms. He states the next thing he knew he woke up at 2 AM in the bathroom with right shoulder pain. Pain persisted and he was brought to the emergency department. X-rays revealed an anterior inferior shoulder dislocation with a displaced comminuted greater tuberosity fracture as well as a minimally displaced small bony Bankart lesion. Closed reduction was performed in emergency department. He was placed in a sling. He followed up in our office as well as with his PCP. This was the patient's first reported seizure. He did report that he had injury consistent with biting his tongue. Patient was neurovascularly intact. I evaluated the patient in the office last week. He was concerned about the risk of long-term instability of his shoulder and recommended surgical intervention in the form of reduction internal fixation of the right proximal humerus, diagnostic arthroscopy and likely labral repair however I did not feel the preoperative MRI would likely change management analyst and was likely to unnecessarily delay care. I discussed the case with the patient's PCP Dr. Zarate. We both agreed that despite the unique circumstances of the patient's seizure, waiting for full neurologic evaluation may pose unnecessary risk to the patient and result and potential lifelong loss of right shoulder function and felt proceeding with surgery was appropriate. I discussed the case with the patient at length. I reviewed the risks, benefits, and alternatives to the procedure. Risks included but were not limited to bleeding, infection, loss of life or limb, need for additional surgery, persistent pain, nonhealing bone or wounds or labrum, persistent instability, stiffness, neurovascular injury, DVT or PE. Informed consent obtained. Description of procedure: Patient was identified in preoperative holding area by name, medical record number, and date of . The operative extremities marked. All questions were answered patient satisfaction. Interscalene block was administered by anesthesia staff prior to procedure. At time of his procedure, patient brought to the op suite positioned supine operating table. General anesthesia was induced and endotracheal tube placed. Patient was then positioned along the beachchair position. Elevating prominences were well-padded. We prepped and draped the right upper extremity in normal, sterile orthopedic fashion. We performed timeout with all parties in attendance in agreement the side, site, operation to be performed. No concerns voiced elected proceed with surgery. 2 g Ancef was ministered IV prior to the incision by anesthesia staff. I first establish a standard posterior portal 2 fingerbreadths inferior medial to the posterior border scapular spine. Blunt tipped trocar was then driven into the g (more content not included)... Normal [facility] Shoulder min 2 Viewson 11-14 Shoulder min 2 Views [facility] Imaging Services [address] [place] [address] Shoulder min 2 Views MR#: [id number] Acct: [id number] Name: EVIE RENEE Rep #: [id number] : 1990 M 33 From: Cesar Berg MD PCP: Dr. Domenic Zarate MD Status: [facility] Study: Shoulder min 2 Views Date of Exam: 11/15/23 Exam# [id number] Ordering Dr: Atilio Winston DO [id number] STUDY: X-RAY - RIGHT SHOULDER REASON FOR EXAM: Male, 33 years old. Fracture. TECHNIQUE: 3 fluoroscopic spot films of the right shoulder. COMPARISON: Right shoulder radiographs dated 11/06/2023. FINDINGS: The previous right shoulder radiographs demonstrated a slightly displaced fracture of the greater tuberosity of the humeral head. The fluoroscopic spot films demonstrate a nondisplaced fracture of the humeral head. Normal acromioclavicular joint. Normal acromion. There is no new acute fracture. RAD/Shoulder min 2 Views IMPRESSION: Fluoroscopic spot films demonstrating a nondisplaced fracture of the humeral head. Electronically Signed: Cesar Berg MD at 14:31 EDT Reading Location ID and State: [facility] / [place] , Service support , CC: Dr. Domenic Zarate MD; Dr. Atilio Winston DO Plate Drying Machine Tender: Signed Normal [facility] 12 Lead EKGon 11-12-2023 12 Lead EKG [facility] Cardiovascular Services [address] [place] [address] 12 Lead EKG 11/12/23 1156 MR#: [id number] Acct: [id number] Name: EVIE RENEE Rep #: [id number] : 1990 33 From: Robert Whiting MD Attending Dr: Dr. Atilio Winston DO Status: DEP [facility] Ordering Dr: Lane Beltran MD Date: 11/12/23 Location: [facility] Sex: M C Admitted: Test Reason : PREOP Blood Pressure : / mmHG Vent. Rate : 082 BPM Atrial Rate : 082 BPM P-R Int : 126 ms QRS Dur : 092 ms QT Int : 376 ms P-R-T Axes : 064 072 046 degrees QTc Int : 439 ms Normal sinus rhythm Nonspecific T wave abnormality Abnormal ECG Confirmed by Robert Whiting ([id number]), associate entertainment editor DERIC JASON ([id number]) on 11/13/2023 7:32:46 AM Referred By: Atilio Winston Confirmed By:Robert Whiting 11/13/23 0732 Date Robert Whiting MD CC: Dr. Domenic Zarate MD; Dr. Lane Beltran MD; Dr. Atilio Winston DO Signed Normal [facility] Basic Metabolic Profile (BMP )on 11-12-2023 BUN/CRE 17.0 RATIO Normal 10-20 [facility] Comment on above: Performed By: #### L 501.9985, L500.2500, L300.4310 ####[facility] [address] [place], [address] CA,Total 9.3 mg/dL Normal 8.5-10.1 [facility] Comment on above: Performed By: #### L 501.9985, L500.2500, L300.4310 ####[facility] [address] [place], [address] Chloride [Moles/Vol] 102 mmol/L Normal 98-107 [facility] Comment on above: Performed By: #### L 501.9985, L500.2500, L300.4310 ####[facility] [address] [place], [address] CO2 [Moles/Vol] 29.0 mmol/L Normal 21.0-32.0 [facility] Comment on above: Performed By: #### L 501.9985, L500.2500, L300.4310 ####[facility] [address] [place], [address] Creatinine [Mass/Vol] 0.94 mg/dL Normal 0.70-1.30 [facility] Comment on above: Result Comment: The validity of the calculated GFR GFRAA in patients over 70 years has not been determined. Clinical correlation is essential. Performed By: #### L 501.9985, L500.2500, L300.4310 ####[facility] [address] [place], [address] EST GFR - AA 118 mL/min Normal >60 [facility] Comment on above: Result Comment: Afri can Lao GFR Calc Performed By: #### L 501.9985, L500.2500, L300.4310 ####[facility] [address] [place], [address] GAP 7 Normal 5-15 [facility] Comment on above: Performed By: #### L 501.9985, L500.2500, L300.4310 ####[facility] [address] [place], [address] GFR/1.73 sq M.predicted among non-blacks MDRD (S/P/Bld) [Vol rate/Area] 98 mL/min/{1.73_m2} Normal >60 [facility] Comment on above: Result Comment: Non- GFR Calc Performed By: #### L 501.9985, L500.2500, L300.4310 ####[facility] [address] [place], [address] Glucose [Mass/Vol] 114 mg/dL High 74-106 [facility] Comment on above: Result Comment: Fast ing Glucose result from 100 to 125 mg/dL suggests IMPAIRED HOMEOSTASIS per A.D.A. criteria. Performed By: #### L 501.9985, L500.2500, L300.4310 ####[facility] [address] [place], [address] Potassium [Moles/Vol] 3.5 mmol/L Normal 3.5-5.1 [facility] Comment on above: Performed By: #### L 501.9985, L500.2500, L300.4310 ####[facility] [address] [place], [address] Sodium [Moles/Vol] 138 mmol/L Normal 136-145 [facility] Comment on above: Performed By: #### L 501.9985, L500.2500, L300.4310 ####[facility] [address] [place], [address] Urea nitrogen [Mass/Vol] 16 mg/dL Normal 7-18 [facility] Comment on above: Performed By: #### L 501.9985, L500.2500, L300.4310 ####[facility] [address] [place], [address] CBC W/Diff, Automatedon 06-2 -2023 Absolute Lymph 2.12 X10 3/uL Normal 0.83-4.51 [facility] Comment on above: Performed By: #### L 100.0100 ####[facility] [address] [place], [address] Absolute Neut 9.0 X10 3/uL High 2.0-7.7 [facility] Comment on above: Performed By: #### L 100.0100 ####[facility] [address] [place], [address] Basophils/100 WBC (Bld) 0.6 % Normal 0-1 [facility] Comment on above: Performed By: #### L 100.0100 ####[facility] [address] [place], [address] Eosinophils/100 WBC (Bld) 3.8 % Normal 0-5 [facility] Comment on above: Performed By: #### L 100.0100 ####[facility] [address] [place], [address] Erythrocyte distribution width (RBC) [Ratio] 11.9 % Normal 11.6-14.6 [facility] Comment on above: Performed By: #### L 100.0100 ####[facility] [address] [place], [address] Hematocrit (Bld) [Volume fraction] 44.4 % Normal 40-54 [facility] Comment on above: Performed By: #### L 100.0100 ####[facility] [address] [place], [address] Hemoglobin (Bld) [Mass/Vol] 15.1 g/dL Normal 13.0-16.5 [facility] Comment on above: Performed By: #### L 100.0100 ####[facility] [address] [place], [address] IG% 0.600 Normal 0.0-0.9 [facility] Comment on above: Result Comment: IG% - Immature Granulocytes (promyelocytes, myelocytes and metamyelocytes) > 1% indicates that a LEFT SHIFT is Present. Performed By: #### L 100.0100 ####[facility] [address] [place], [address] Lymphocytes/100 WBC (Bld) 16.9 % Low 19-41 [facility] Comment on above: Performed By: #### L 100.0100 ####[facility] [address] [place], [address] MCH (RBC) [Entitic mass] 31.0 pg Normal 27.0-32.0 [facility] Comment on above: Performed By: #### L 100.0100 ####[facility] [address] [place], [address] MCHC (RBC) [Mass/Vol] 34.0 g/dL Normal 32-36 [facility] Comment on above: Performed By: #### L 100.0100 ####[facility] [address] [place], [address] MCV (RBC) [Entitic vol] 91.2 fL Normal 80-94 [facility] Comment on above: Performed By: #### L 100.0100 ####[facility] [address] [place], [address] Monocytes/100 WBC (Bld) 6.5 % Normal 0-10 [facility] Comment on above: Performed By: #### L 100.0100 ####[facility] [address] [place], [address] Neutrophils/100 WBC (Bld) 71.6 % High 47-70 [facility] Comment on above: Performed By: #### L 100.0100 ####[facility] [address] [place], [address] Nucleated RBC (Bld) [#/Vol] 0 10*3/uL Normal 0-5 [facility] Comment on above: Performed By: #### L 100.0100 ####[facility] [address] [place], [address] Platelet mean volume (Bld) [Entitic vol] 8.8 fL Normal 6.2-12.0 [facility] Comment on above: Performed By: #### L 100.0100 ####[facility] [address] [place], [address] Platelets (Bld) [#/Vol] 448 10*3/uL Normal 150-450 [facility] Comment on above: Performed By: #### L 100.0100 ####[facility] [address] [place], [address] RBC (Bld) [#/Vol] 4.87 10*6/uL Normal 4.6-6.2 [facility] Comment on above: Performed By: #### L 100.0100 ####[facility] [address] [place], [address] RDW SD 40.0 fl Normal 35.1-43.9 [facility] Comment on above: Performed By: #### L 100.0100 ####[facility] [address] [place], [address] WBC (Bld) [#/Vol] 12.5 10*3/uL High 4.4-11.0 [facility] Comment on above: Performed By: #### L 100.0100 ####[facility] [address] [place], [address] Hemoglobin A1con 11-12-2023 HbA1c (Bld) [Mass fraction] 7.4 % High 3.8-5.6 [facility] Comment on above: Result Comment: Norm al < 5.7 % Prediabetic 5.7 - 6.4 % Diabetic >or= 6.5 % Please note range changes. Performed By: #### L 501.9985, L500.2500, L300.4310 ####[facility] [address] [place], [address] Partial Thromboplast Timeon 11-12-2023 aPTT Coag (Bld) [Time] 27.0 s Normal 24.1-36.2 [facility] Comment on above: Performed By: #### L 501.9985, L500.2500, L300.4310 ####[facility] [address] [place], [address] Emergency Department Summary on 11-06-2023 Emergency Department Summary [facility] Medical Records Department [address] [place] [address] Emergency Department Summary 11/06/23 MR#: [id number] Acct: [id number] Name: EVIE RENEE Rep #: [id number] : 1990 33 From: Jeyson Guillaume DO PCP: Dr. Domenic Zarate MD Status:DEP ER Location: ED HPI History of Present Illness Chief Complaint: Upper Extremity Injury Informant: patient and friend Narrative Narrative: Patient is a 33-year-old male with history of type 1 diabetes. He was seen a few days ago secondary to shoulder pain with no trauma and was found to have new onset seizure activity with a fracture dislocation of the right humerus. Patient had the dislocation reduced was placed in a sling and discharged home. He states that he has had no repeat trauma or seizure activity but has noticed increased pain to the right shoulder and secondary to his comes in for evaluation. [facility] Medical History (Updated 11/06/23 @ 23:[address] Jeyson Guillaume DO) Wears glasses Diabetes mellitus type 1 Home Medications ???Medication ???Instructions ???Recorded ???Last Taken ???Type atorvastatin 20 mg tablet 20 mg PO DAILY 11/04/23 Unknown History insulin aspart U-100 100 unit/mL 40 unit subcut TIDCM 11/04/23 Unknown History (3 mL) subcutaneous pen (Novolog FlexPen U-100 Insulin aspart) insulin glargine 100 unit/mL 50 unit subcut QPM 11/04/23 Unknown History subcutaneous solution (Lantus U-100 Insulin) lisinopril 2.5 mg tablet 2.5 mg PO DAILY 11/04/23 Unknown History oxycodone-acetaminophe n 5 mg-325 1 tab PO Q6H PRN pain 5 days #20 11/04/23 Unknown Rx mg tablet (Percocet) tabs Allergy/AdvReac Type Severity Reaction Status Date / Time No Known Allergies Allergy Verified 11/06/23 21:41 Surgical History (Updated 11/04/23 @ 01:57 by Georgina Payan) Hx of tonsillectomy Social History Smoking Status: Current every day smoker tobacco type: e-cigarettes ROS ROS ED Constitutional Constitutional ED: Denies chills or fever(s) ENT ENT ED: Denies sore throat Cardiovascular Cardiovascular: Denies chest pain Respiratory/Chest Respiratory/Chest: Denies cough or dyspnea Gastrointestinal Gastrointestinal: Denies abdominal pain, diarrhea, nausea or vomiting Genitourinary Genitourinary ED: Denies dysuria Musculoskeletal Musculoskeletal: Reports other Details: Positive right shoulder pain and swelling Integumentary Denies rash Neurologic Neurologic: Reports paresthesias; Denies headache(s) Hematologic/Lymphatic Hematologic/Lymphatic: Denies easy bleeding or easy bruising EXAM Physical Exam Const Vital Signs: 11/06/23 21:41 Temperature 97.3 F L Temperature Source Temporal Pulse Rate 79 Respiratory Rate 18 Blood Pressure 139/89 H Blood Pressure Mean 105 Pulse Ox 97 Oxygen Delivery Method Room Air Positive well nourished and well developed General Appearance ED: well developed HEENT HEENT Narrative: Normocephalic atraumatic Eyes PERRL and EOMs intact bilaterally Neck supple Resp normal respiratory effort and clear to auscultation bilaterally Cardio regular rate and regular rhythm Extremity Extremity Narrative: Right upper extremity is neurovascularly intact; AIN/PIN are intact and normal Active and passive range of motion is severely limited secondary to the previous shoulder fracture There is soft tissue swelling with hematoma formation present however compartments are still soft and compressible going against compartment syndrome. No overlying erythema to suggest infection or abscess formation. Neuro oriented x3 and CN's II-XII intact bilaterally Sensorium / Orientation: alert Psych mental status grossly normal Skin no rashes or lesions noted Skin Narrative: Soft tissue swelling with ecchymosis to the right shoulder and upper humerus as documented above MDM MDM MDM Narrative Medical decision making narrative: Patient arrived to the ER with stable vitals. He denied any new trauma or recurrent seizure activity but does report a persistent pain in the right shoulder. Differential diagnosis is persistent shoulder pain from the trauma/fracture versus hematoma versus compartment syndrome versus infection. There are no physical exam findings to suggest infection and his compartments are soft and compressible going against compartment syndrome. In order to ensure the patient has not developed a secondary fracture or recurrent dislocation and x-rays were obtained. These revealed no acute findings other than the previous/recent greater tuberosity fracture. Therefore this time as the x-rays confirm no new finding and the patient does not have findings of infection or compartment syndrome is otherwise safe for discharge Radiography Diagnostic Testing: Clinical Impression (more content not included)... Normal [facility] Humerus min 2 Viewson 2023 Humerus min 2 Views [facility] Imaging Services [address] [place], [place] [id number] Humerus min 2 Views MR#: [id number] Acct: [id number] Name: EVEI RENEE Rep #: [id number] : 1990 M 33 From: Livan Wolfe MD PCP: Dr. Domenic Zarate MD Status: REG ER Study: Humerus min 2 Views Date of Exam: 11/06/23 Exam# [id number] Ordering Dr: Jeyson Guillaume DO [id number] EXAM: XR RIGHT HUMERUS, 2 OR MORE VIEWS CLINICAL INDICATION: pain TECHNIQUE: Frontal and lateral views of the right humerus. COMPARISON: No relevant prior studies available. FINDINGS: BONES/JOINTS: There is a fracture the greater tuberosity of the proximal humerus. Preservation of the joint space. No sclerotic or destructive changes observed. SOFT TISSUES: Unremarkable. No soft tissue swelling or gas. No radiopaque foreign body. RAD/Humerus min 2 Views IMPRESSION: Fracture of the greater tuberosity. Electronically Signed: Livan Wolfe MD at 22:47 EDT , CC: Dr. Domenic Zarate MD; Jeyson Guillaume DO Plate Drying Machine Tender: Signed Normal [facility] Shoulder min 2 Viewson 11-05 Shoulder min 2 Views [facility] Imaging Services [address] [place] [address] Shoulder min 2 Views MR#: [id number] Acct: [id number] Name: EVIE RENEE Rep #: [id number] : 1990 M 33 From: Livan Wolfe MD PCP: Dr. Domenic Zarate MD Status: REG ER Study: Shoulder min 2 Views Date of Exam: 11/06/23 Exam# [id number] Ordering Dr: Jeyson Guillaume DO [id number] EXAM: XR RIGHT SHOULDER COMPLETE, 2 OR MORE VIEWS CLINICAL INDICATION: pain TECHNIQUE: Two or more views of the right shoulder. COMPARISON: No relevant prior studies available. FINDINGS: BONES/JOINTS: There is a fracture of the greater tuberosity. Humeral head is located in the glenoid fossa. Preservation of the joint space. No sclerotic or destructive changes observed. SOFT TISSUES: Unremarkable. No soft tissue swelling or gas. No radiopaque foreign body. RAD/Shoulder min 2 Views IMPRESSION: Fracture of the greater tuberosity. Electronically Signed: Livan Wolfe MD at 23:11 EDT , CC: Dr. Domenic Zarate MD; Jeyson Guillaume DO Plate Drying Machine Tender: Signed Normal [facility] Basic Metabolic Profile (BMP )on 11-04-2023 BUN/CRE 12.2 RATIO Normal 03-05 [facility] Comment on above: Result Comment: AMENDED REPORT 11/04/23 1210 BUN/CRE previously reported as: 11.7 RATIO Performed By: #### L 504.2610, L503.6005, L3100.5420, L100.0100, L500.2500 #### [facility] Laboratory [address] [place], [place], [id number] CA,Total 9.8 mg/dL Normal 8.5-10.1 [facility] Comment on above: Result Comment: AMENDED REPORT 11/04/23 1210 CA previously reported as: 10.0 mg/dL Performed By: #### L 504.2610, L503.6005, L3100.5420, L100.0100, L500.2500 #### [facility] [address] [place], [address] CO2 [Moles/Vol] 26.0 mmol/L Normal 21.0-32.0 [facility] Comment on above: Result Comment: AMENDED REPORT 11/04/23 1210 CO2 previously reported as: 25.0 mmol/L Performed By: #### L 504.2610, L503.6005, L3100.5420, L100.0100, L500.2500 #### [facility] [address] [place], [address] Creatinine [Mass/Vol] 0.99 mg/dL Normal 0.70-1.30 [facility] Comment on above: Result Comment: The validity of the calculated GFR GFRAA in patients over 70 years has not been determined. Clinical correlation is essential. The validity of the calculated GFR GFRAA in patients over 70 years has not been determined. Clinical correlation is essential. AMENDED REPORT 11/04/231209 CREAT,SERUM previously reported as: 1.03 mg/dL The validity of the calculated GFR GFRAA in patients over 70 years has not been determined. Clinical correlation is essential. Performed By: #### L 504.2610, L503.6005, L3100.5420, L100.0100, L500.2500 #### [facility] [address] [place], [address] ECRCL 116.49 ml/min Normal [facility] Comment on above: Result Comment: AMENDED REPORT 11/04/23 1210 Estimated CRCL previously reported as: 111.96 ml/min Performed By: #### L 504.2610, L503.6005, L3100.5420, L100.0100, L500.2500 #### [facility] [address] [place], [address] EST GFR - AA 112 mL/min Normal >60 [facility] Comment on above: Result Comment: Afri can Lao GFR Calc AMENDED REPORT 11/04/23 1210 EST GFR - AA previously reported as: 107 mL/min Performed By: #### L 504.2610, L503.6005, L3100.5420, L100.0100, L500.2500 #### [facility] [address] [place], [address] GFR/1.73 sq M.predicted among non-blacks MDRD (S/P/Bld) [Vol rate/Area] 93 mL/min/{1.73_m2} Normal >60 [facility] Comment on above: Result Comment: Non- GFR Calc AMENDED REPORT 11/04/23 1210 EST GFR previously reported as: 88 mL/min Performed By: #### L 504.2610, L503.6005, L3100.5420, L100.0100, L500.2500 #### [facility] [address] [place], [address] Glucose [Mass/Vol] 66 mg/dL Low 74-106 [facility] Comment on above: Result Comment: AMENDED REPORT 11/04/23 1210 GLU previously reported as: 61 L mg/dL Performed By: #### L 504.2610, L503.6005, L3100.5420, L100.0100, L500.2500 #### [facility] [address] [place], [address] Potassium [Moles/Vol] 3.6 mmol/L Normal 3.5-5.1 [facility] Comment on above: Result Comment: Slig ht Hemolysis, Result may be falsely increased. AMENDED REPORT 11/04/23 1210 K previously reported as: 3.6 mmol/L Performed By: #### L 504.2610, L503.6005, L3100.5420, L100.0100, L500.2500 #### [facility] [address] [place], [address] Bedside Glucoseon 11-04-2023 FINGERSTICK GLU 106 mg/dL Normal 74-106 [facility] Comment on above: Result Comment: ADELITA MILLER OF PATIENT CARE PER NURSING PROTOCOL Performed By: #### L 501.080 #### [facility] [address] [place], [address] Brain/Head without Contrasto n 11-04-2023 Brain/Head without Contrast [facility] Imaging Services [address] [place] [address] Brain/Head without Contrast MR#: [id number] Acct: [id number] Name: EVIE RENEE Rep #: [id number] : 1990 M 33 From: Jeyson Desai MD PCP: Dr. Domenic Zarate MD Status: REG ER Study: Brain/Head without Contrast Date of Exam: 10/16 Exam# [id number] Ordering Dr: Jeyson Guillaume DO ADDENDUM by Dr. Jeyson Desai MD on 11/04/23 at 1924 [id number] EXAM: CT HEAD WITHOUT INTRAVENOUS CONTRAST CLINICAL INDICATION: seizure TECHNIQUE: Multiple axial images were obtained of the head without intravenous contrast. CTDIvol = ( 44.99 ) mGy, DLP = ( 846.73 ) mGycm This CT exam was performed using one or more of the following dose reduction techniques: automated exposure control, adjustment of the mA and/or kV according to patient size, and/or use of iterative reconstruction technique. COMPARISON: No relevant prior studies available. FINDINGS: BRAIN AND EXTRA-AXIAL SPACES: Subtle hypodensity involving the superior left frontal lobe. No intra- or extra-axial hemorrhage. No intracranial mass or mass effect. There is preservation of the lovelace/white matter interface. Posterior fossa structures are unremarkable. Ventricles are appropriate for age. No hydrocephalus. Basal cisterns are patent. BONES/JOINTS: Unremarkable. No discrete lytic or blastic abnormalities. SINUSES: Unremarkable as visualized. Clear. MASTOID AIR CELLS: Unremarkable. Clear. ORBITS: Visualized globes, extraocular muscles, optic nerves and retrobulbar fat appear unremarkable. 11/04/23 0455 Date cc: Dr. Domenic Zarate MD; Jeyson Guillaume DO * Signed ADDENDUM by Dr. Jeyson Desai MD on 11/04/[address]/Brain/Head without Contrast IMPRESSION: Subtle hypodensity involving the superior left frontal lobe. Appearance is nonspecific but if there is clinical concern for acute infarct as a potential cause, recommend MRI for further investigation. N.B. : Jeyson Guillaume DO, confirmed on 11/04/2023 05:24:45 (ET) that the healthcare facility has received the radiology report. Electronically Signed: Jeyson Desai MD at 4:57 EDT , 11/04/23 05 Date cc: Dr. Domenic Zarate MD; Jeyson Guillaume DO * Signed ACR Level 3 findings have been noted. An addendum which confirms receipt of the report will follow. [id number] EXAM: CT HEAD WITHOUT INTRAVENOUS CONTRAST CLINICAL INDICATION: seizure TECHNIQUE: Multiple axial images were obtained of the head without intravenous contrast. CTDIvol = ( 44.99 ) mGy, DLP = ( 846.73 ) mGycm This CT exam was performed using one or more of the following dose reduction techniques: automated exposure control, adjustment of the mA and/or kV according to patient size, and/or use of iterative reconstruction technique. COMPARISON: No relevant prior studies available. FINDINGS: BRAIN AND EXTRA-AXIAL SPACES: Subtle hypodensity involving the superior left frontal lobe. No intra- or extra-axial hemorrhage. No intracranial mass or mass effect. There is preservation of the lovelace/white matter interface. Posterior fossa structures are unremarkable. Ventricles are appropriate for age. No hydrocephalus. Basal cisterns are patent. BONES/JOINTS: Unremarkable. No discrete lytic or blastic abnormalities. SINUSES: Unremarkable as visualized. Clear. MASTOID AIR CELLS: Unremarkable. Clear. ORBITS: Visualized globes, extraocular muscles, optic nerves and retrobulbar fat appear unremarkable. CT/Brain/Head without Contrast IMPRESSION: Subtle hypodensity involving the superior left frontal lobe. Appearance is nonspecific but if there is clinical concern for acute infarct as a potential cause, recommend MRI for further investigation. Electronically Signed: Jeyson Desai MD at 4:57 EDT , CC: Dr. Domenic Zarate MD; Jeyson Guillaume DO Plate Drying Machine Tender: Signed Normal [facility] CBC W/Diff, Automatedon 10-16 0-2023 Absolute Lymph 1.20 X10 3/uL Normal 0.83-4.51 [facility] Comment on above: Performed By: #### L 504.2610, L503.6005, L3100.5420, L100.0100, L500.2500 #### [facility] [address] [place], [address] Absolute Neut 19.8 X10 3/uL High 2.0-7.7 [facility] Comment on above: Performed By: #### L 504.2610, L503.6005, L3100.5420, L100.0100, L500.2500 #### [facility] [address] [place], [address] Basophils/100 WBC (Bld) 0.5 % Normal 0-1 [facility] Comment on above: Performed By: #### L 504.2610, L503.6005, L3100.5420, L100.0100, L500.2500 #### [facility] [address] [place], [address] Eosinophils/100 WBC (Bld) 0.3 % Normal 0-5 [facility] Comment on above: Performed By: #### L 504.2610, L503.6005, L3100.5420, L100.0100, L500.2500 #### [facility] [address] [place], [address] Erythrocyte distribution width (RBC) [Ratio] 12.1 % Normal 11.6-14.6 [facility] Comment on above: Performed By: #### L 504.2610, L503.6005, L3100.5420, L100.0100, L500.2500 #### [facility] [address] [place], [address] Hematocrit (Bld) [Volume fraction] 49.6 % Normal 40-54 [facility] Comment on above: Performed By: #### L 504.2610, L503.6005, L3100.5420, L100.0100, L500.2500 #### [facility] [address] [place], [address] Hemoglobin (Bld) [Mass/Vol] 16.4 g/dL Normal 13.0-16.5 [facility] Comment on above: Performed By: #### L 504.2610, L503.6005, L3100.5420, L100.0100, L500.2500 #### [facility] [address] [place], [address] IG% 0.600 Normal 0.0-0.9 [facility] Comment on above: Result Comment: IG% - Immature Granulocytes (promyelocytes, myelocytes and metamyelocytes) > 1% indicates that a LEFT SHIFT is Present. Performed By: #### L 504.2610, L503.6005, L3100.5420, L100.0100, L500.2500 #### [facility] [address] [place], [address] Lymphocytes/100 WBC (Bld) 5.3 % Low 19-41 [facility] Comment on above: Performed By: #### L 504.2610, L503.6005, L3100.5420, L100.0100, L500.2500 #### [facility] [address] [place], [address] MCH (RBC) [Entitic mass] 31.2 pg Normal 27.0-32.0 [facility] Comment on above: Performed By: #### L 504.2610, L503.6005, L3100.5420, L100.0100, L500.2500 #### [facility] [address] [place], [address] MCHC (RBC) [Mass/Vol] 33.1 g/dL Normal 32-36 [facility] Comment on above: Performed By: #### L 504.2610, L503.6005, L3100.5420, L100.0100, L500.2500 #### [facility] [address] [place], [address] MCV (RBC) [Entitic vol] 94.3 fL High 80-94 [facility] Comment on above: Performed By: #### L 504.2610, L503.6005, L3100.5420, L100.0100, L500.2500 #### [facility] [address] [place], [address] Monocytes/100 WBC (Bld) 5.8 % Normal 0-10 [facility] Comment on above: Performed By: #### L 504.2610, L503.6005, L3100.5420, L100.0100, L500.2500 #### [facility] [address] [place], [address] Neutrophils/100 WBC (Bld) 87.5 % High 47-70 [facility] Comment on above: Performed By: #### L 504.2610, L503.6005, L3100.5420, L100.0100, L500.2500 #### [facility] [address] [place], [address] Nucleated RBC (Bld) [#/Vol] 0 10*3/uL Normal 0-5 [facility] Comment on above: Performed By: #### L 504.2610, L503.6005, L3100.5420, L100.0100, L500.2500 #### [facility] [address] [place], [address] Platelet mean volume (Bld) [Entitic vol] 9.3 fL Normal 6.2-12.0 [facility] Comment on above: Performed By: #### L 504.2610, L503.6005, L3100.5420, L100.0100, L500.2500 #### [facility] [address] [place], [address] Platelets (Bld) [#/Vol] 292 10*3/uL Normal 150-450 [facility] Comment on above: Performed By: #### L 504.2610, L503.6005, L3100.5420, L100.0100, L500.2500 #### [facility] [address] [place], [address] RBC (Bld) [#/Vol] 5.26 10*6/uL Normal 4.6-6.2 [facility] Comment on above: Performed By: #### L 504.2610, L503.6005, L3100.5420, L100.0100, L500.2500 #### [facility] [address] [place], [address] RDW SD 42.4 fl Normal 35.1-43.9 [facility] Comment on above: Performed By: #### L 504.2610, L503.6005, L3100.5420, L100.0100, L500.2500 #### [facility] [address] [place], [address] WBC (Bld) [#/Vol] 22.6 10*3/uL High 4.4-11.0 [facility] Comment on above: Performed By: #### L 504.2610, L503.6005, L3100.5420, L100.0100, L500.2500 #### [facility] [address] [place], [address] Emergency Department Summary on 11-04-2023 Emergency Department Summary [facility] Medical Records Department [address] [place] [address] Emergency Department Summary 11/04/23 MR#: [id number] Acct: [id number] Name: EVIE RENEE Rep #: [id number] : 1990 33 From: Jeyson Guillaume DO PCP: Dr. Domenic Zarate MD Status:DEP ER Location: ED HPI History of Present Illness Chief Complaint: Upper Extremity Injury Informant: patient and friend Narrative Narrative: Patient is a 33-year-old male with past medical history of type 1 diabetes. He states he went to bed last night as he normally would and then he awoke from sleep and felt pain in his right shoulder. He states that prior to falling asleep there is no excessive activity or trauma. He denies falling out of his bed while sleeping. He states he just awoke and noted the pain and has had difficulty moving the arm since he awoke and secondary to this comes in for evaluation. [facility] Medical History (Updated 11/04/23 @ 09:[address] Jeyson Guillaume DO) Wears glasses Diabetes mellitus type 1 Home Medications ???Medication ???Instructions ???Recorded ???Last Taken ???Type atorvastatin 20 mg tablet 20 mg PO DAILY 11/04/23 Unknown History insulin aspart U-100 100 unit/mL 40 unit subcut 11/04/23 Unknown History (3 mL) subcutaneous pen (Novolog FlexPen U-100 Insulin aspart) insulin glargine 100 unit/mL 50 unit subcut QPM 11/04/23 Unknown History subcutaneous solution (Lantus U-100 Insulin) lisinopril 2.5 mg tablet 2.5 mg PO DAILY 11/04/23 Unknown History oxycodone-acetaminophe n 5 mg-325 1 tab PO Q6H PRN pain 5 days #20 11/04/23 Unknown Rx mg tablet (Percocet) tabs Allergy/AdvReac Type Severity Reaction Status Date / Time No Known Allergies Allergy Verified 11/04/23 01:55 Surgical History (Updated 11/04/23 @ 01:57 by Georgina Payan) Hx of tonsillectomy Social History Smoking Status: Current every day smoker tobacco type: e-cigarettes ROS ROS ED Constitutional Constitutional ED: Denies chills or fever(s) Eyes Eyes: Denies change in vision ENT ENT ED: Denies sore throat Cardiovascular Cardiovascular: Denies chest pain Respiratory/Chest Respiratory/Chest: Denies cough or dyspnea Gastrointestinal Gastrointestinal: Denies abdominal pain, diarrhea, nausea or vomiting Genitourinary Genitourinary ED: Denies dysuria Musculoskeletal Musculoskeletal: Reports other Details: Positive right shoulder pain Integumentary Denies rash Neurologic Neurologic: Denies headache(s) or paresthesias Hematologic/Lymphatic Hematologic/Lymphatic: Denies easy bleeding or easy bruising EXAM Physical Exam Const Vital Signs: 11/04/23 01:55 11/04/23 03:19 11/04/23 05:19 Temperature 96.3 F L Temperature Source Temporal Pulse Rate 97 91 92 Respiratory Rate 16 16 16 Blood Pressure 148/91 H 154/83 H 147/80 H Blood Pressure Mean 110 106 102 Pulse Ox 99 100 99 Oxygen Delivery Method Room Air Room Air Room Air Positive well nourished and well developed General Appearance ED: well developed HEENT HEENT Narrative: Normocephalic atraumatic There is tongue biting noted on the right lateral side concerning for seizure disorder Eyes PERRL and EOMs intact bilaterally Eyes Narrative: No hyphema noted Neck full ROM and supple Neck Narrative: No bony deformity or step-off of the cervical spine no midline tenderness to palpation Chest Wall palpation of chest normal Chest Narrative: No bony deformity or crepitance noted Resp normal respiratory effort and clear to auscultation bilaterally Cardio regular rate and regular rhythm GI non-tender, non-distended and no masses Auscultation: normoactive bowel sounds Palpation: soft Back/Spine Back/Spine Narrative: No bony deformity or step-off of the thoracic or lumbar spine no midline tenderness to palpation Extremity Extremity Narrative: Right upper extremity is neurovascularly intact. There is soft tissue swelling with potential sulcus sign of the right shoulder. There is diffuse pain on palpation of the right shoulder and right upper arm. No obvious joint effusion. Compartments are soft and compressible going against compartment syndrome. Remainder of the exam is normal Neuro oriented x3 and CN's II-XII intact bilaterally Sensorium / Orientation: alert Psych mental status grossly normal Skin no rashes or lesions noted MDM MDM MDM Narrative Medical decision making narrative: Patient arrived to the ER hypertensive but otherwise with stable vitals. He reported waking up and having right shoulder pain and difficulty moving it. On exam there is soft tissue swelling with potential sulcus sign indicating potential shoulder dislocation. There is also right-sided tongue biting noted which would be consistent with a seizure. The p (more content not included)... Normal [facility] Extremity Upper without Cont raon 11-04-2023 Extremity Upper without Contra [facility] Imaging Services [address] [place] [address] Extremity Upper without Contra MR#: [id number] Acct: [id number] Name: EVIE RENEE Rep #: [id number] : 1990 M 33 From: Denia Sexton PCP: Dr. Domenic Zarate MD Status: REG ER Study: Extremity Upper without Contra Date of Exam: 0 11/04/23 Exam# [id number] Ordering Dr: Jeyson Guillaume DO [id number] EXAM: CT Shoulder W/O Contrast Injection RIGHT HISTORY: shoulder dislocation with fracture TECHNIQUE: Axial images obtained through the shoulder without IV contrast. Sagittal and coronal reformats were provided. IV Contrast: None.. RADIATION DOSAGE (If Supplied By Facility): CTDIvol = ( 25.88 ) mGy, DLP = ( 564.25 ) mGycm Individualized dose optimization techniques were used for this CT. COMPARISON: Right shoulder x-rays earlier same day. LIMITATIONS: None. FINDINGS: Comminuted fracture proximal humerus involving the greater tuberosity, with approximately 3.5 cm displacement of the larger fragment posterolateral in relation to the humeral head. The humeral head is displaced anterior and inferior relation to the glenoid. The posterior margin of the humeral head is in direct contact with the scapula anterolateral and medial to the glenoid. There is an impaction fracture at the anterior margin of the glenoid. There are numerous tiny bone fragments within the joint space. Moderate joint effusion. Surrounding soft tissue edema. CT/Extremity Upper without Contra IMPRESSION: Fracture dislocation at the glenohumeral joint with comminuted fracture of the greater tuberosity, and humeral head impacted on the scapula anterior to the glenoid. Impaction fracture of the glenoid. Electronically Signed: Denia Craft MD at 6:55 EDT , CC: Dr. Domenic Zarate MD; Jeyson Guillaume DO Plate Drying Machine Tender: Signed Normal [facility] LDHon 11-04-2023 LDH 272 U/L High 87-241 [facility] Comment on above: Result Comment: Slig ht Hemolysis, Result may be falsely increased. Performed By: #### L 504.2610, L503.6005, L3100.5420, L100.0100, L500.2500 ####[facility] [address] [place], [place], [id number] Lactic Acidon 11-04-2023 Lactate [Moles/Vol] 2.1 mmol/L Invalid Interpretation Code 0.4-1.9 [facility] Comment on above: Order Comment: Y Performed By: #### L 504.2610, L503.6005, L3100.5420, L100.0100, L500.2500 #### [facility] [address] [place], [place], [address] Prolactinon 11-04-2023 PROLACTIN 14.0 ng/mL Normal [facility] Comment on above: Result Comment: NORMAL REFERENCE RANGES FEMALE NON- 2.2 - 30.3 ng/mL 8.1 - 347.6 ng/mL POST-MENOPAUSAL 0.7 - 31.5 ng/mL MALE 2.5 - 17.4 ng/mL Performed By: #### L 504.2610, L503.6005, L3100.5420, L100.0100, L500.2500 ####[facility] [address] [place], [address] Shoulder min 2 Viewson 11-03 Shoulder min 2 Views [facility] Imaging Services [address] [place] [address] Shoulder min 2 Views MR#: [id number] Acct: [id number] Name: EVIE RENEE Rep #: [id number] : 1990 M 33 From: Raul marsh MD PCP: Dr. Domenic Zarate MD Status: REG ER Study: Shoulder min 2 Views Date of Exam: 11/04/23 Exam# [id number] Ordering Dr: Jeyson Guillaume DO [id number] STUDY: X-RAY - RIGHT SHOULDER REASON FOR EXAM: Male, 33 years old. S/p reduction TECHNIQUE: 2 view(s) of the shoulder. COMPARISON: Comparison is made with prior study done earlier today. FINDINGS: Satisfactory reduction of the glenohumeral joint. There is a fracture through the greater tuberosity of the proximal humerus. Normal acromioclavicular joint. Normal acromion. The soft tissue structures are unremarkable. Normal visualized pulmonary apex. RAD/Shoulder min 2 Views IMPRESSION: Satisfactory reduction. Once again, is evidence of a fracture through the greater tuberosity of the proximal humerus. Electronically Signed: Raul Brink MD at 9:30 EDT , CC: Dr. Domenic Zarate MD; Jeyson Guillaume DO Plate Drying Machine Tender: Signed Normal [facility] Shoulder min 2 Views [facility] Imaging Services [address] [place] [place], [place] [address] Shoulder min 2 Views MR#: [id number] Acct: [id number] Name: EVIE RENEE Rep #: [id number] : 1990 M 33 From: Jeyson Desai MD PCP: Dr. Domenic Zarate MD Status: REG ER Study: Shoulder min 2 Views Date of Exam: 11/04/23 Exam# [id number] Ordering Dr: Jeyson Guillaume DO [id number] EXAM: XR RIGHT SHOULDER COMPLETE, 2 OR MORE VIEWS CLINICAL INDICATION: pain TECHNIQUE: Two or more views of the right shoulder. COMPARISON: No relevant prior studies available. FINDINGS: Acute comminuted fracture involving the humeral head with anterior dislocation humeral head relative to glenoid. Cannot exclude a fracture of the glenoid. Recommend CT for further investigation. RAD/Shoulder min 2 Views IMPRESSION: Acute comminuted fracture involving the humeral head with anterior dislocation humeral head relative to glenoid. Cannot exclude a fracture of the glenoid. Recommend CT for further investigation. Electronically Signed: Jeyson Desai MD at 4:54 EDT , CC: Dr. Domenic Zarate MD; Jeyson Guillaume DO Plate Drying Machine Tender: Signed Normal [facility] Basophil percentageon 2021 Bilirubin [Mass/Vol] 0.80 mg/dL 0.20-1.00 [facility] Work Phone: Comment on above: For patients on eltr ombopag therapy, use of Dimension [place] TBIL is not recommended. Chloride [Moles/Vol] 106 mmol/L 98-107 [facility] Work Phone: Cholesterol [Mass/Vol] 127 mg/dL <200 [facility] Work Phone: Comment on above: <200 mg/dL Desirable 200-240 mg/dL Borderline >240 mg/dL High Risk Glucose [Mass/Vol] 125 mg/dL 74-106 [facility] Work Phone: Comment on above: Fasting Glucose resu lt from 100 to 125 mg/dL suggests IMPAIRED HOMEOSTASIS per A.D.A. criteria. Potassium [Moles/Vol] 3.9 mmol/L 3.5-5.1 [facility] Work Phone: Protein [Mass/Vol] 7.3 g/dL 6.4-8.2 [facility] Work Phone: Sodium [Moles/Vol] 138 mmol/L 136-145 [facility] Work Phone: Testosterone [Mass/Vol] 521.06 ng/dL [facility] Work Phone: Comment on above: CENTRAL 90% REFERENC E RANGES MALE AGE <50 197.44 - 669.58 ng/dL MALE AGE > or = 50 187.72 - 684.19 ng/dL FEMALE AGE <50 8.38 - 35.01 ng/dL FEMALE AGE > or = 50 <7.00 - 35.92 ng/dL Effective as of 12/10/20 Triglyceride [Mass/Vol] 107 mg/dL <199 [facility] Work Phone: Comment on above: The drugs N-Acetylcy steine and Metamizole may falsely depress this assay.Serum Triglycerides Reference Interval Normal <150 mg/dL Borderline high 150 - 199 mg/dL High 200 - 499 mg/dL Very High > or = 500 mg/dL Laboratory - Chemistry and C hemistry - challengeon 02-24-2022 ALP [Catalytic activity/Vol] 61 U/L 45-117 [facility] Work Phone: ALT [Catalytic activity/Vol] 25 U/L 16-61 [facility] Work Phone: CO2 [Moles/Vol] 25.0 mmol/L 21.0-32.0 [facility] Work Phone: Cobalamin (Vitamin B12) [Mass/Vol] 1076 pg/mL 211-911 [facility] Work Phone: Globulin (S) [Mass/Vol] 3.6 g/dL 2.2-4.2 [facility] Work Phone: Urea nitrogen/Creatinin e [Mass ratio] 19.8 mg/mg 10-20 [facility] Work Phone: No Panel Informationon 02-24 Estimated GFR (MDRD) Amer 133 mL/min >60 [facility] Work Phone: Comment on above: GFR Calc Estimated GFR (MDRD) Non-Af Amer 110 mL/min >60 [facility] Work Phone: Comment on above: Non- GFR Calc Thyroid Stimulating Hormone (TSH) 1.05 uIU/mL 0.358-3.74 [facility] Work Phone: Serum or plasma albumin reg urement (mass/volume)on 02-24-2022 Albumin [Mass/Vol] 3.7 g/dL 3.2-5.0 [facility] Work Phone: Serum or plasma albumin/glob ulin mass ratioon 02-24-2022 Albumin/Globulin [Mass ratio] 1.0 {ratio} 0.9-2.4 [facility] Work Phone: Serum or plasma calcium reg urement (mass/volume)on 02-24-2022 Calcium [Mass/Vol] 9.4 mg/dL 8.5-10.1 [facility] Work Phone: Serum or plasma cholesterol in HDL measurement (mass/volume)on 02-24-2022 Cholesterol in HDL [Mass/Vol] 44 mg/dL >40 [facility] Work Phone: Comment on above: The drugs N-Acetylcy steine and Metamizole may falsely depress this assay. Reference Range HDL <40 mg/dL Low HDL Cholesterol HDL >or= 60 mg/dL High HDL Cholesterol Serum or plasma cholesterol in VLDL measurement (mass/volume)on 02-24-2022 Cholesterol in VLDL [Mass/Vol] 21 mg/dL 5-40 [facility] Work Phone: Serum or plasma creatinine m easurement (mass/volume)on 02-24-2022 Creatinine [Mass/Vol] 0.86 mg/dL 0.70-1.30 [facility] Work Phone: Comment on above: The validity of the calculated GFR & GFRAA in patients over 70 years has not been determined. Clinical correlation is essential. Serum or plasma low density lipoprotein (LDL) cholesterol measurement (mass/volume)on 02-24-2022 Cholesterol in LDL [Mass/Vol] 62 mg/dL 0-130 [facility] Work Phone: Serum or plasma urea nitroge n measurement (mass/volume)on 02-24-2022 Urea nitrogen [Mass/Vol] 17 mg/dL 7-18 [facility] Work Phone: Thin prep Papanicolaou smear with manual screeningon 02-24-2022 Thin prep Papanicolaou smear with manual screening 13 U/L 15-37 [facility] Work Phone: Thin prep Papanicolaou smear with manual screening 7 5-15 [facility] Work Phone: Vanessa 11-20-2016 [facility] Telephone (ENDMED) EVIE RENEE ([id number]) 1990 [facility] Time Provider Department11/20/16 KARLI OROPEZA ([facility]) SOFIA During your visit today, we recorded the following information about you:Tristen Price Ma 11/20/2016 9:03 AM SignedReceived VM from patients mom on back line VM.States they got a call from the local pharmacy stating the script was ready forpick up.States it shouldn't be coming from the pharmacy, it [facility] to our [facility].Nothing received in office.Called and spoke with mom (Bushra) - informed to call assistance program to findout status on medication as we are not given this information.Expressed understanding.Encounte r closed.Jory Carter 11/23/2016 4:36 PM SignedPatient calls to f/u on encounter below.Patients mother given [facility] number to find out status.Encounter closedAllergies As of Date: 11/20/2016(No Known Allergies)Date Reviewed: 03/03/2016Reviewed by: Karli ([facility]) Sandip - Fully AssessedReason for Visit: Returning Patient's Call [[phone]]Prescriptions as of 11/20/2016 Sig: INSULIN LISPRO 100 UNIT/ML MORRIS* Inject 15 units before each m* INSULIN GLARGINE 100 UNIT/ML * Inject 35 Units subcutaneousl* TOUJEO SOLOSTAR 300 UNIT/ML (* Inject 35 units once daily at* PEN NEEDLE, DIABETIC 31 GAUGE* Takes 8 to 10 injections daily COMPOUNDED PRESCRIPTION One touch ultra blue test str*Problem List As Of Date 11/20/2016 Noted Resolved Uncontrolled type 1 diabetes mellitus (HCC) [E1*INVALID FOR* ASTHMA UNSPECIFIED [J45.909] INVALID FOR* Status:Closed by TRISTEN PRICE MA on 11/20/16 [facility] OBSOLETEon 11-12-2016 OBSOLETE Refill (ENDMED) [facility] ([id number]) 1990 [facility]12[facility] KARLI OROPEZA ([facility]) SOFIA During your visit today, we recorded the following information about you:Mary Ellen Mead 11/12/2016 4:22 PM SignedPatient phones requesting refills as follows:Pending Prescriptions Disp Refills INSULIN LISPRO 100 UNIT/ML SUBCUTANEOUS PEN 75 mL 3 Sig: Inject 15 units before each meal four times daily up to 75 units daily.DX E10.65 ANGELA: No Please review and advise.Mary Ellen Milton Price Ma 11/12/2016 4:31 PM SignedPatient phones requesting refills as follows:Pending Prescriptions Disp Refills INSULIN LISPRO 100 UNIT/ML SUBCUTANEOUS PEN 25 Pen 3 Sig: Inject 15 units before each meal four times daily up to 75 units daily.DX E10.65 ANGELA: No Please review and advise.Tristen Oropeza CNP 11/12/2016 5:14 PM SignedPatient needs to schedule appointment for follow upAllergies As of Date: 11/12/2016(No Known Allergies)Date Reviewed: 03/03/2016Reviewed by: Karli ([facility]) Sandip - Fully AssessedReason for Visit: Refill Request [94]Visit Diagnosis:Uncontrolled type 1 diabetes mellitus with complication (HCC) [E10.8, E10.65]Order(s):Insuli n Lispro, Human, (HUMALOG KWIKPEN) 100 unit/mL inpnInject 15 units before each meal four times daily up to 75 units daily. DX E10.65Disp: 25 PenRfl: 0Prescriptions as of 11/12/2016 Sig: INSULIN LISPRO 100 UNIT/ML MORRIS* Inject 15 units before each m* INSULIN GLARGINE 100 UNIT/ML * Inject 35 Units subcutaneousl* TOUJEO SOLOSTAR 300 UNIT/ML (* Inject 35 units once daily at* PEN NEEDLE, DIABETIC 31 GAUGE* Takes 8 to 10 injections daily COMPOUNDED PRESCRIPTION One touch ultra blue test str*Problem List As Of Date 11/12/2016 Noted Resolved Uncontrolled type 1 diabetes mellitus (HCC) [E1*INVALID FOR* ASTHMA UNSPECIFIED [J45.909] INVALID FOR*Prescriptions ordered this encounter Disp Refills Start End INSULIN LISPRO 100 UNIT/ML SUBCUTANE* 25 P* 0 11/12/2016 Cmt: 25 pens, 0 refills. Sig: Inject 15 units before each meal four times daily up to 75 units daily. DX E10.65Medications Discontinued During This Encounter Insulin Lispro, Human, (HUMALOG KWIK* 75 mL 3 06/08/2016 11/12/2016 Class: Print RX Sig: Inject 15 units before each meal four times daily up to 75 units daily. DX E10.65 Disc: Reason for discontinue is not on file. Status:Closed by MARY ELLEN MEAD on 11/18/16 Normal [facility] Encounters Encounter Date Encounter Type Care Provider Facility Start: 01-03-2024 ambulatory Spenser Tessa Faci lity:[facility] Start: 11-15-2023 End: 11-15-2023 ambulatory [facility] Facility:[facility] Start: 11-12-2023 End: 11-12-2023 ambulatory [facility] Facility:[facility] Start: 11-06-2023 End: 11-06-2023 Emergency department patient visit Jeyson Guillaume Facility:[facility] Start: 11-04-2023 End: 11-04-2023 [facility] Start: 02-24-2022 End: 02-24-2022 ambulatory [facility] Work Phone: Start: 02-24-2022 End: 02-24-2022 Patient encounter procedure [facility] Payers Date Payer Category Payer Medicaid [id number] 2023 Self-pay [id number] 2023 Unknown [id number] [facility] [id number] Unknown [facility] [id number] Unknown [id number] 2.16.8 [id number] Unknown [id number] 2.16.8 [id number] Unknown [id number] 2.16.8 [id number] Unknown [id number] 2.16.8 [id number] Unknown [id number] 2.16.8 [id number] Social History Date Type Detail Facility Tobacco smoking stat [facility] Unknown if ever smoked [facility] Work Phone: Start: 1990 Sex Assigned At Male [facility] Work Phone: Evaluation note Note Date & Type Note Facility Evaluation note No assessment information availa ble [facility] Work Phone: Summary Purpose Family History No Family History Records FoundNo Family History Records Found Advance Directives No Advanced Directives Records FoundNo Advanced Directives Records Found Additional Source Comments (unrecognized sect ion and content) No Status Records FoundNo Status Records Found INFORMATION SOURCE (unrecogn ized section and content) DATE CREATED AUTHOR 11/10/2017 [facility] DATE CREATED AUTHOR AUTHOR'S ORGANIZ ATION 01/26/2024 [facility] Goals (unrecognized section and content) Goals may be documented in a n alternate section FOR RECORDS PERTAINING TO PATIENTS WHO ARE OR HAVE BEEN ENROLLED IN A CHEMICAL DEPENDENCY/SUBSTANCEABUSE PROGRAM, SOME INFORMATION MAY BE OMITTED. This clinical summary was aggregated from multiple sources. Caution should be exercised in using it in the provision of clinical care. This summary normalizes information from multiple sources, and as a consequence, information in this document may materially change the coding, format and clinical context of patient data. In addition, data may be omitted in some cases. CLINICAL DECISIONS SHOULD BE BASED ON THE PRIMARY CLINICAL RECORDS. [employer] provides no warranty or guarantee of the accuracy or completeness of information in this document.
[2024-12-02 02:20] LABS: Mucous, Urine 2+ /hpf (<or=2+)
[2024-12-02 03:00] VITALS: BP 137/83; PULSE 87; RESP 12; O2SAT 97
[2024-12-02 03:12] LABS: AST(SGOT) 15 U/L (<=37); Alanine Aminotransfer ALT/SGPT 15 U/L (<=46); Albumin, Serum 4.4 g/dL (3.5-5.0); Alkaline Phosphatase 72 U/L (40-129); Anion Gap 11 (5-15); BUN 14 mg/dL (4-19); BUN/Creat Ratio 14.5 RATIO (10-20); Calcium,Total 9.6 mg/dL (7.6-11.0); Carbon Dioxide 27.5 mmol/L (21.0-32.0); Chloride 102 mmol/L (98-108); Estimated Creatinine Clearance 125.14 ml/min (50-250); Globulin 2.7 g/dL (2.2-4.2); Glucose 129 mg/dL (70-99); Potassium 3.6 mmol/L (3.3-5.1)
[2024-12-02 03:23] VITALS: BP 142/87; PULSE 94; RESP 14; TEMP 36.7; O2SAT 97
== END 2024-12-02 03:28 | disposition home or self-care (01) ==
PROVIDERS: Emergency Provider Surgery; PCP Family Medicine; Visit Provider Surgery
DX: R42 Dizziness and giddiness (principal); Z79.4 Long term (current) use of insulin; E10.65 Type 1 diabetes mellitus with hyperglycemia; J30.2 Other seasonal allergic rhinitis; E78.00 Pure hypercholesterolemia, unspecified; I10 Essential (primary) hypertension; Z79.899 Other long term (current) drug therapy; Z87.891 Personal history of nicotine dependence
CPT/HCPCS: 80053; 81001; 93005; 99284; A4216